=== PATIENT | female | born 1930 | race Caucasian/White ===

== ENCOUNTER 2016-05-20 12:57 | Inpatient (IN) | payer MEDICARE, OTHER ==
[~2016-05-20] VITALS: Ht 162.6 cm; Wt 68.0 kg
[~2016-05-20 12:57] MED LIST: CALC-671 PO; E400C; FEXO180T; HCT25T; HYDR-3583 PO; HYDR1TAB66 PO; HYOS0.1216; LEVO75TA57; LISI40TA; LUTE10TA; LVT.088T PO; MULT-608; NITR50CA; OCCUVITE; OMEP20CA6 PO; PROP1TAB77; SCR1T1
--- NOTE | 2016-05-20 13:28 | ED Cough/URI ---
General Chief Complaint: Cough/Cold/Flu Symptoms Stated Complaint: COUGH/R SIDE HEAD PAIN Source: patient, family (DAUGHTER) History of Present Illness Time seen by provider: 13:13 Initial Comments PT ARRIVES VIA POV FROM HOME C/O NON-PRODUCTIVE COUGH SINCE Saturday05/15/16--GETTING WORSE C/O FEVER UP TO 102 SINCE YESTERDAY C/O NASAL CONGESTION --CLEAR DRAINAGE C/O BODY ACHES C/O PAIN TO RIGHT POSTERIOR AND LINA-AURICULAR AREA--COMES AND GOES AND IS VERY SHARP AND SEVERE AT TIMES, AND RADIATES TO RIGHT CHEEK. NO PARESTHESIAS OR MOTOR DEFICITS. NO RINGING OF EARS. NO VISION PROBLEMS. NO RASH TO AREA. HAS HAD SHINGLES IN THE PAST TO THE FACE, BUT DOES NOT REMEMBER WHICH SIDE NO CHEST PAIN OR SHORTNESS OF BREATH DAUGHTER BEGAN HAVING THE SAME SYMPTOMS A DAY LATER PT DID RECEIVE THE FLU VACCINATION THIS YEAR PCP: DR. BEDOYA Allergies and Home Medications Allergies Coded Allergies: Penicillins (Verified Allergy, Severe, TACHYCARDIA, COULDN'T BREATHE, ) Sulfa (Sulfonamide Antibiotics) (Verified Allergy, Severe, TACHYCARDIA, COULDN'T BREATHE, 05/20/16) Uncoded Allergies: [id number] (SULFA (SULFONAMIDE ANTIBIOTICS)) (Allergy, Mild, RASH, 05/20/16) heart palpatations Home Medications (Reported) Amlodipine Besylate 5 Mg Tablet 30Days 5 MG PO DAILY Prescribed by: HINA HERNDON on 05/20/16 1748 Calcium Carbonate/Vitamin D3 1 Each Tablet (Reported) Cyclobenzaprine HCl 5 Mg Tablet 30Days 5 MG PO TID Prescribed by: HINA HERNDON on 05/20/16 1748 Hydrocodone Bit/Acetaminophen 1 Each Tablet 1 EACH PO (Reported) Levothyroxine Sodium 88 Mcg Tablet (Reported) Multivitamins 1 Tab Tablet (Reported) Omeprazole 20 Mg Capsule. #30 20 MG PO DAILY Prescribed by: CALIXTO ROCHA on 05/21/11 1623 Tramadol HCl 50 Mg Tablet 30Days 100 MG PO Q6H Prescribed by: HINA HERNDON on 05/20/16 1748 Constitutional: see HPI fever malaise EENTM: hoarseness nose congestion see HPI Respiratory: see HPI coughNo short of breath Cardiovascular: no symptoms reportedNo chest pain Gastrointestinal: no symptoms reported Genitourinary: no symptoms reported Musculoskeletal: see HPI (BODY ACHES) Skin: no symptoms reportedNo rash Psychiatric/Neurological: See HPI HeadacheDenies Numbness, Denies Paresthesia , Denies Seizure, Denies Tingling, Denies Tremors, Denies Weakness Hematologic/Lymphatic: No Symptoms Reported Immunological/Allergic: no symptoms reported Past Qurzsyu-Tntxfu-Pmfcko Hx Patient Social History Alcohol Use: Denies Use Recreational Drug Use: No Smoking Status: Never a Smoker Recent Foreign Travel: No Contact w/Someone Who Travel: No Recent Hopitalizations: No Immunizations Up To Date Date of Pneumonia Vaccine: Jan 13, 2014 Date of Influenza Vaccine: Feb 17, 2011 Surgeries HX Surgeries: Yes (TONSILLECTOMY,GASTRIC BYPASS,BILE DUCT BYPASS,BILAT KNEE REPLACEMENT) Surgeries: Abdominal, Joint Replacement, Orthopedic, Tonsillectomy Respiratory Hx Respiratory Disorders: No Cardiovascular Hx Cardiac Disorders: Yes Cardiac Disorders: Hypertension Neurological Hx Neurological Disorders: Yes Reproductive System Hx Reproductive Disorders: Yes Sexually Transmitted Disease: No Genitourinary Hx Genitourinary Disorders: Yes Genitourinary Disorders: Bladder Infection Gastrointestinal Hx Gastrointestinal Disorders: Yes (RECURRENT ABD PAINX20 YEARS) Musculoskeletal Hx Musculoskeletal Disorders: Yes Musculoskeletal Disorders: Arthritis Endocrine Hx Endocrine Disorders: Yes Endocrine Disorders: Hypothyroidsim HEENT HX ENT Disorders: No Cancer Hx Cancer: No Psychosocial Hx Psychiatric Problems: Yes Integumentary HX Skin/Integumentary Disorder: Yes (SHINGLES) Blood Transfusions Hx Blood Disorders: No Physical Exam Vital Signs Vital Sign - Last 12Hours 05/20/16 13:44 Temp 96.4 Pulse 70 Resp 16 Pulse Ox 97 O2 Delivery Room Air Capillary Refill : General Appearance: WD/WN no apparent distress other (CONSTANT, HARSH, DRY COUGH) HEENT: PERRL/EOMI other (NASAL MUCOSAL EDEMA WITH CLEAR RHINORRHEA AND POST NASAL DRAINAGE; VOICE HOARSE) Neck: non-tender full range of motion supple normal inspection Respiratory: no respiratory distress no accessory muscle use rales (FEW, SCATTERED RALES BILATERALLT) Cardiovascular: regular rate, rhythm no murmur Gastrointestinal: normal bowel sounds non tender soft Extremities: normal inspection no pedal edema no calf tenderness normal capillary refill 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 no motor/sensory deficits alert normal mood/affect oriented x 3 Skin: normal color warm/dry Progress/Results/Core Measures Results/Orders Lab Results Laboratory Tests Test 05/20/16 14:32 Range/Units Alanine Aminotransferase (ALT/SGPT) 15 0-55 U/L Albumin 3.4 3.2-4.5 G/DL Alkaline Phosphatase 79 40-136 U/L Anion Gap 14 5-14 MMOL/L Aspartate Amino Transf (AST/SGOT) 20 5-34 U/L BUN/Creatinine Ratio 16 Basophils # (Auto) 0.0 0.0-0.1 10^3/uL Basophils (%) (Auto) 0 0-10 % Blood Urea Nitrogen 14 7-18 MG/DL Calcium Level 8.4 L 8.5-10.1 MG/DL Carbon Dioxide Level 23 21-32 MMOL/L Chloride Level 102 98-107 MMOL/L Creatinine 0.86 0.60-1.30 MG/DL Eosinophils # (Auto) 0.1 0.0-0.3 10^3/uL Eosinophils (%) (Auto) 1 0-10 % Estimat Glomerular Filtration Rate > 60 Glucose Level 125 H 70-105 MG/DL Hematocrit 31 L 35-52 % Hemoglobin 10.1 L 11.5-16.0 G/DL Lactic Acid Level 1.1 0.5-2.0 MMOL/L Lymphocytes # (Auto) 1.2 1.0-4.0 X 10^3 Lymphocytes (%) (Auto) 15 12-44 % Mean Corpuscular Hemoglobin 28 25-34 PG Mean Corpuscular Hemoglobin Concent 33 32-36 G/DL Mean Corpuscular Volume 85 80-99 FL Mean Platelet Volume 10.7 H 7.4-10.4 FL Monocytes # (Auto) 0.7 0.0-1.0 X 10^3 Monocytes (%) (Auto) 8 0-12 % Neutrophils # (Auto) 6.2 1.8-7.8 X 10^3 Neutrophils (%) (Auto) 76 H 42-75 % Platelet Count 220 130-400 10^3/uL Potassium Level 3.3 L 3.6-5.0 MMOL/L Red Blood Count 3.63 L 4.35-5.85 10^6/uL Red Cell Distribution Width 14.1 10.0-14.5 % Sodium Level 139 135-145 MMOL/L Total Bilirubin 0.4 0.1-1.0 MG/DL Total Protein 6.7 6.4-8.2 G/DL White Blood Count 8.2 4.3-11.0 10^3/uL Micro Results Microbiology 05/20/16 Influenza Types A,B Antigen (DAVID) - Final, Complete My Orders Orders-DONNYCANDIDA Clark Influenza A And B Antigens (05/20/16 13:14) Chest Pa/Lat (2 View) (05/20/16 13:14) Saline Lock/Iv-Start (05/20/16 13:58) Cbc With Automated Diff (05/20/16 13:58) Comprehensive Metabolic Panel (05/20/16 13:58) Lactic Acid Analyzer (05/20/16 13:58) Blood Culture (05/20/16 13:58) Albuterol/Ipra Inhalation Soln (Duoneb I (05/20/16 14:00) Rt Request For Service (05/20/16 13:58) Svn Sm Volume Nebulizer Rt-Rfs (05/20/16 13:58) Ceftriaxone Injection (Rocephin Injectio (05/20/16 14:00) Benzonatate Capsule (Tessalon Perles) (05/20/16 14:00) Ceftriaxone Injection (Rocephin Injectio (05/20/16 14:42) Normal Saline (Lennon Mini) (Ns (Lennon (05/20/16 14:43) Fentanyl Injection (Sublimaze Injection (05/20/16 15:22) Medications Given in ED Current Medications Medications Dose Ordered Sig/[place] Route Start Time Stop Time Status Last Admin Dose Admin Albuterol/ Ipratropium 3 ml 3 ml ONCE ONCE INH 05/20/16 14:00 05/20/16 14:01 DC 05/20/16 15:02 3 ML Ceftriaxone Sodium/Sodium Chloride 50 ml @ 100 mls/hr ONCE ONCE IV 05/20/16 14:00 05/20/16 14:29 DC 05/20/16 14:52 100 MLS/HR Vital Signs/I&O Vital Sign - Last 12Hours 05/20/16 05/20/16 05/20/16 13:44 15:02 15:43 Temp 96.4 96.4 Pulse 70 Resp 16 B/P Pulse Ox 97 95 O2 Delivery Room Air Room Air Progress Note : Progress Note UNEVENTFUL ER STAY SLIGHT DECREASE IN COUGH AT TIME OF ADMIT, AFTER NEBULIZER TREATMENT Diagnostic Imaging Comments CXR--RLL INFILTRATE, PER RADIOLOGIST REPORT @ 1355 Reviewed: Reviewed by Me Departure Communication Progress Notes 1517--SPOKE WITH DR. STACK, ACCEPTS PT FOR ADMIT. Impression Impression: Primary Impression: RLL pneumonia Additional Impression: Right facial pain Disposition: ADMITTED INPATIENT Condition: Stable Decision to Admit Reason: Admit from ER (General) Decision to Admit/Date: May 20, 2016 Time/Decision to Admit Time: 15:20 Departure-Patient Inst. Referrals: YEHUDA BEDOYA DO (PCP) Primary Care Physician Scripts Tramadol HCl 50 Mg Byacco493 Mg PO Q6H 30 Days Prov:BASHIR STACK DO 05/20/16 Cyclobenzaprine HCl 5 Mg Tablet5 Mg PO TID 30 Days Prov:BASHIR STACK DO 05/20/16 Amlodipine Besylate 5 Mg Tablet5 Mg PO DAILY 30 Days Prov:BASHIR STACK DO 05/20/16 CANDIDA HINES DO May 20, 2016 13:28
--- NOTE | 2016-05-20 13:46 | Diagnostic Imaging Report ---
EXAMINATION: CHEST (PA AND LATERAL) CLINICAL INDICATION: 85-year-old female, cough and headache. COMPARISON: Acute abdominal series July 04, 2009. FINDINGS: Heart size and mediastinal contours are unremarkable. There is no identified pneumothorax. There is no pleural effusion. There are peripheral reticulonodular opacities in the right mid and lower lung zones. IMPRESSION: 1. New mild reticulonodular opacities in the mid and lower lung zones on the right. Findings may potentially relate to infectious or inflammatory etiology or potentially atelectasis. Clinical correlation and followup to resolution would be recommended. Dictated by: Dictated on workstation # [id number]
[2016-05-20] MEDS ORDERED: cefTRIAXone INJECTION 1,000 MG in NORMAL SALINE (BAXTER MINI) 50 ML IV ONE (14:00)
[2016-05-20] MEDS ORDERED: RT-ALBUTEROL/IPRATROPIUM 3 ML (DUONEB) VIAL INH ONE (14:00)
[2016-05-20] MEDS ORDERED: BENZONATATE 100 MG (TESSALON) CAPSULE PO SCH (14:00)
[2016-05-20] MEDS ORDERED: cefTRIAXone 1 GM (ROCEPHIN) VIAL ONE (14:42)
[2016-05-20] MEDS ORDERED: NORMAL SALINE (BAXTER MINI) 50 ML IV ONE (14:43)
[2016-05-20 14:46] LABS: BASOPHILS % (AUTO) 0 % (0-10); EOSINOPHILS # (AUTO) 0.1 10^3/uL (0.0-0.3); EOSINOPHILS % (AUTO) 1 % (0-10); LYMPHOCYTES # (AUTO) 1.2 X 10^3 (1.0-4.0); LYMPHOCYTES % (AUTO) 15 % (12-44); MEAN CORPUSCULAR HEMOGLOBIN 28 PG (25-34); MEAN CORPUSCULAR HGB CONC 33 G/DL (32-36); MEAN CORPUSCULAR VOLUME 85 FL (80-99); MEAN PLATELET VOLUME 10.7 FL (7.4-10.4); MONOCYTES # (AUTO) 0.7 X 10^3 (0.0-1.0); MONOCYTES % (AUTO) 8 % (0-12); NEUTROPHILS # (AUTO) 6.2 X 10^3 (1.8-7.8); NEUTROPHILS % (AUTO) 76 % (42-75); PLATELET COUNT 220 10^3/uL (130-400); RED BLOOD COUNT 3.63 10^6/uL (4.35-5.85); RED CELL DISTRIBUTION WIDTH 14.1 % (10.0-14.5); WHITE BLOOD COUNT 8.2 10^3/uL (4.3-11.0)
[2016-05-20 15:03] LABS: ALANINE AMINOTRANSFERASE 15 U/L (0-55); ALBUMIN 3.4 G/DL (3.2-4.5); ANION GAP 14 MMOL/L (5-14); ASPARTATE AMINO TRANSFERASE 20 U/L (5-34); BILIRUBIN,TOTAL 0.4 MG/DL (0.1-1.0); BLOOD UREA NITROGEN 14 MG/DL (7-18); BUN/CREATININE RATIO 16; CALCIUM 8.4 MG/DL (8.5-10.1); CARBON DIOXIDE 23 MMOL/L (21-32); CHLORIDE 102 MMOL/L (98-107); CREATININE SERUM 0.86 MG/DL (0.60-1.30); GFR ESTIMATED > 60; GLUCOSE 125 MG/DL (70-105); POTASSIUM 3.3 MMOL/L (3.6-5.0); SODIUM 139 MMOL/L (135-145); TOTAL PROTEIN 6.7 G/DL (6.4-8.2)
[2016-05-20] MEDS ORDERED: fentaNYL INJECTION 100 MCG/2 ML AMP IVP STA (15:22)
[2016-05-20 17:05] VITALS: BP 145/76
[2016-05-20] MEDS ORDERED: D5 1/2 NS 1000 ML IV SOLUTION 1,000 ML IV SCH (17:30)
[2016-05-20] MEDS ORDERED: IBUPROFEN 800 MG (MOTRIN) TAB PO PRN (17:30)
[2016-05-20] MEDS ORDERED: ACETAMINOPHEN 500 MG TAB (TYLENOL) PO PRN ×2 (17:30)
[2016-05-20] MEDS ORDERED: BENZONATATE 100 MG (TESSALON) CAPSULE PO PRN (17:30)
[2016-05-20] MEDS ORDERED: CATHETER FLUSH 10 ML SYR IV PRN (17:30)
[2016-05-20] MEDS ORDERED: AZITHROMYCIN IV ADD-VANTAGE 500 MG in SODIUM CHLORIDE (ADD-VANTAGE) 250 ML IV ONE (17:30)
[2016-05-20] MEDS ORDERED: fentaNYL INJECTION 100 MCG/2 ML AMP IVP PRN (17:30)
[2016-05-20] MEDS ORDERED: AZITHROMYCIN IV ADD-VANTAGE 500 MG IV ONE (17:37)
[2016-05-20] MEDS ORDERED: SODIUM CHLORIDE (ADD-VANTAGE) 250 ML ONE (17:39)
[2016-05-20] MEDS ORDERED: CYCL5TAB PO (17:48)
[2016-05-20] MEDS ORDERED: AMLO5TAB2 PO (17:48)
[2016-05-20] MEDS ORDERED: TRAM50TA2 PO (17:48)
[2016-05-20] MEDS: D5 1/2 NS 1000 ML IV SOLUTION 1,000 ML IV SCH (17:49)
[2016-05-20] MEDS: fentaNYL INJECTION 100 MCG/2 ML AMP IV PRN (18:30)
[2016-05-20] MEDS ORDERED: RT-ALBUTEROL/IPRATROPIUM 3 ML (DUONEB) VIAL INH PRN (20:30)
[2016-05-20] MEDS: BENZONATATE 100 MG (TESSALON) CAPSULE PO PRN (20:40)
[2016-05-20 20:51] VITALS: BP 124/56
[2016-05-20] MEDS ORDERED: THIAMINE INJECTION 100 MG, FOLIC ACID INJECTION 1 MG, VITAMIN MULTI INJECTION 10 ML, MA... IV ONE ×5 (22:00)
[2016-05-20 23:33] VITALS: BP 108/58
[2016-05-21] MEDS: D5 1/2 NS 1000 ML IV SOLUTION 1,000 ML IV SCH ×3 (03:30→15:28)
[2016-05-21 04:00] VITALS: BP 131/59
[2016-05-21] MEDS: fentaNYL INJECTION 100 MCG/2 ML AMP IV PRN ×2 (04:24→07:14)
[2016-05-21] MEDS: BENZONATATE 100 MG (TESSALON) CAPSULE PO PRN ×3 (04:25→17:21)
[2016-05-21] MEDS: LACTATED RINGERS 1,000 ML IV SCH (04:39)
[2016-05-21] MEDS: guaiFENesin/DM (ROBITUSSIN DM) 10 ML UDC PO PRN ×3 (07:11→20:57)
[2016-05-21 07:22] LABS: BASOPHILS % (AUTO) 0 % (0-10); EOSINOPHILS # (AUTO) 0.3 10^3/uL (0.0-0.3); EOSINOPHILS % (AUTO) 3 % (0-10); LYMPHOCYTES # (AUTO) 1.5 X 10^3 (1.0-4.0); LYMPHOCYTES % (AUTO) 15 % (12-44); MEAN CORPUSCULAR HEMOGLOBIN 27 PG (25-34); MEAN CORPUSCULAR HGB CONC 32 G/DL (32-36); MEAN CORPUSCULAR VOLUME 84 FL (80-99); MEAN PLATELET VOLUME 10.9 FL (7.4-10.4); MONOCYTES # (AUTO) 0.7 X 10^3 (0.0-1.0); MONOCYTES % (AUTO) 8 % (0-12); NEUTROPHILS # (AUTO) 7.3 X 10^3 (1.8-7.8); NEUTROPHILS % (AUTO) 74 % (42-75); PLATELET COUNT 230 10^3/uL (130-400); RED CELL DISTRIBUTION WIDTH 14.2 % (10.0-14.5); WHITE BLOOD COUNT 9.8 10^3/uL (4.3-11.0)
[2016-05-21 07:46] LABS: ALANINE AMINOTRANSFERASE 14 U/L (0-55); ANION GAP 9 MMOL/L (5-14); ASPARTATE AMINO TRANSFERASE 21 U/L (5-34); BILIRUBIN,TOTAL 0.3 MG/DL (0.1-1.0); BLOOD UREA NITROGEN 11 MG/DL (7-18); BUN/CREATININE RATIO 14; CALCIUM 8.1 MG/DL (8.5-10.1); CARBON DIOXIDE 25 MMOL/L (21-32); CHLORIDE 105 MMOL/L (98-107); CREATININE SERUM 0.79 MG/DL (0.60-1.30); GFR ESTIMATED > 60; GLUCOSE 117 MG/DL (70-105); POTASSIUM 3.3 MMOL/L (3.6-5.0); SODIUM 139 MMOL/L (135-145); TOTAL PROTEIN 6.3 G/DL (6.4-8.2)
[2016-05-21 08:00] VITALS: BP 116/59
[2016-05-21] MEDS: IBUPROFEN 800 MG (MOTRIN) TAB PO PRN ×2 (09:58→20:57)
[2016-05-21] MEDS: AZITHROMYCIN 250 MG TAB (ZITHROMAX) PO SCH (09:59)
[2016-05-21] MEDS: RT-ALBUTEROL/IPRATROPIUM 3 ML (DUONEB) VIAL INH SCH ×3 (11:14→19:12)
[2016-05-21 11:59] VITALS: BP 90/65
--- NOTE | 2016-05-21 12:22 | History & Physical-Hospitalist ---
HPI History of Present Illness: HPI/Chief Complaint The patient is a charming 85-year-old white female. She was admitted to the emergency room after she presented with complaints of cough and fever. She reported that she had been in [place] to spend [place] with her granddaughter and great grandchildren. She had returned on Monday 05/14. She stated that she had acquired a cough which was productive of some sputum from her great-grandchildren. This then cleared she was able to undergo colonoscopy on 05/17. She then began to cough again. She ran a fever as high as 102 reports had minimal sputum production. Her daughter who lives in [place] came over and they set out with the intent of going to a quick care provider. None were open so they came to the emergency room. Findings in the emergency room showed her initial temperature to be 101. Chest x-ray showed marginal findings suggestive of pneumonia. Her hemoglobin was 10.1, her white blood count was 8200, and her potassium was 3.3. She was admitted for IV antibiotics and pulmonary toilet. Source: patient Date Seen 05/21/16 Attending Physician Mary Ramirez William J DO Referring Physician Date of Admission May 20, 2016 at 16:26 Home Medications & Allergies Home Medications Reviewed patient Home Medication Reconciliation Form Allergies Coded Allergies: Penicillins (Verified Allergy, Severe, TACHYCARDIA, COULDN'T BREATHE, ) Sulfa (Sulfonamide Antibiotics) (Verified Allergy, Severe, TACHYCARDIA, COULDN'T BREATHE, 05/20/16) Uncoded Allergies: [id number] (SULFA (SULFONAMIDE ANTIBIOTICS)) (Allergy, Mild, RASH, 05/20/16) heart palpatations Past Vfghame-Nzpcyo-Waqxyg Hx Patient Social History Alcohol Use: Denies Use Recreational Drug Use: No Smoking Status: Never a Smoker Physical Abuse Screen: No Sexual Abuse: No Recent Foreign Travel: No Contact w/other who traveled: No Recent Hopitalizations: No Recent Infectious Disease Expo: No Immunizations Up To Date Tetanus Booster (TDap): Unknown Date of Pneumonia Vaccine: Jan 13, 2014 Date of Influenza Vaccine: Feb 18, 2016 Seasonal Allergies Seasonal Allergies: No Surgeries HX Surgeries: Yes (TONSILLECTOMY,GASTRIC BYPASS,BILE DUCT BYPASS,BILAT KNEE REPLACEMENT) Surgeries: Abdominal, Joint Replacement, Orthopedic, Tonsillectomy Respiratory Hx Respiratory Disorders: No Cardiovascular Hx Cardiovascular Disorders: Yes Cardiac Disorders: Hypertension Neurological Hx Neurological Disorders: Yes Reproductive System Hx Reproductive Disorders: Yes Sexually Transmitted Disease: No Genitourinary Hx Genitourinary Disorders: Yes Genitourinary Disorders: Bladder Infection Gastrointestinal Hx Gastrointestinal Disorders: Yes (RECURRENT ABD PAINX20 YEARS) Musculoskeletal Hx Musculoskeletal Disorders: Yes (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 Review of Systems Constitutional: see HPI chills fever EENTM: no symptoms reported Respiratory: see HPI cough phlegm Cardiovascular: no symptoms reported Gastrointestinal: no symptoms reported Musculoskeletal: no symptoms reported Skin: no symptoms reported Psychiatric/Neurological: No Symptoms Reported Physical Exam Physical Exam Vital Signs Capillary Refill : Less Than 3 SecondsLess Than 3 Seconds General Appearance: Mild Distress Other (harsh cough) Eyes: Bilateral Eye Normal Inspection HEENT: Normal ENT Inspection Cardiovascular: Regular Rate, Rhythm No Edema No Gallop No JVD No Murmur Normal Peripheral Pulses Gastrointestinal: Normal Bowel Sounds No Organomegaly Non Tender Soft Extremity: Normal Capillary Refill Normal Inspection Normal Range of Motion Non Tender No Calf Tenderness No Pedal Edema Neurologic/Psychiatric: Alert Oriented x3 No Motor/Sensory Deficits Normal Mood/Affect Skin: Normal Color Warm/Dry Lymphatic: No Adenopathy Results Results/Procedures Lab Assessment/Plan Admission Diagnosis 1.respiratory illness with fever. 2.minimal chest x-ray changes suggesting pneumonia or pneumonitis Clinical Quality Measures DVT/VTE Risk/Contraindication: Risk Factor Score Per Nursin RFS Level Per Nursing on Admit: 4+=Very High SANTO VALADEZ MD May 21, 2016 12:22 Neurologic/Psychiatric: Alert Oriented x3 No Motor/Sensory Deficits Normal Mood/Affect Skin: Normal Color Warm/Dry Lymphatic: No Adenopathy Results Results/Procedures Lab Laboratory Tests 05/20/16 14:32 05/21/16 06:45 Assessment/Plan Admission Diagnosis 1.respiratory illness with fever. 2.minimal chest x-ray changes suggesting pneumonia or pneumonitis Clinical Quality Measures DVT/VTE Risk/Contraindication: Risk Factor Score Per Nursin RFS Level Per Nursing on Admit: 4+=Very High SANTO VALADEZ MD May 21, 2016 12:22
[2016-05-21] MEDS: KCL 20 MEQ TAB (K-DUR) PO SCH ×2 (14:23→20:56)
[2016-05-21] MEDS ORDERED: cefTRIAXone 1 GM (ROCEPHIN) VIAL ONE (15:10)
[2016-05-21] MEDS ORDERED: NORMAL SALINE (BAXTER MINI) 50 ML IV ONE (15:11)
[2016-05-21] MEDS: cefTRIAXone INJECTION 1,000 MG in NORMAL SALINE (BAXTER MINI) 50 ML IV SCH ×2 (15:14→15:19)
[2016-05-21 16:00] VITALS: BP 116/63
[2016-05-21 20:00] VITALS: BP 130/69
[2016-05-22] VITALS: BP 112/56
[2016-05-22] MEDS: BENZONATATE 100 MG (TESSALON) CAPSULE PO PRN ×2 (00:23→22:34)
[2016-05-22] MEDS: fentaNYL INJECTION 100 MCG/2 ML AMP IV PRN (00:23)
[2016-05-22 04:00] VITALS: BP 117/59
[2016-05-22] MEDS: D5 1/2 NS 1000 ML IV SOLUTION 1,000 ML IV SCH ×2 (04:25→15:14)
[2016-05-22 05:50] LABS: ANION GAP 9 MMOL/L (5-14); BLOOD UREA NITROGEN 10 MG/DL (7-18); BUN/CREATININE RATIO 14; CALCIUM 7.7 MG/DL (8.5-10.1); CARBON DIOXIDE 21 MMOL/L (21-32); CHLORIDE 108 MMOL/L (98-107); CREATININE SERUM 0.73 MG/DL (0.60-1.30); GFR ESTIMATED > 60; GLUCOSE 99 MG/DL (70-105); POTASSIUM 3.8 MMOL/L (3.6-5.0); SODIUM 138 MMOL/L (135-145)
[2016-05-22] MEDS: guaiFENesin/DM (ROBITUSSIN DM) 10 ML UDC PO PRN ×3 (06:06→20:03)
[2016-05-22 08:00] VITALS: BP 148/70
[2016-05-22] MEDS: KCL 20 MEQ TAB (K-DUR) PO SCH ×2 (08:13→20:03)
[2016-05-22] MEDS: AZITHROMYCIN 250 MG TAB (ZITHROMAX) PO SCH (08:13)
[2016-05-22] MEDS: RT-ALBUTEROL/IPRATROPIUM 3 ML (DUONEB) VIAL INH SCH ×4 (08:13→19:45)
[2016-05-22] MEDS: IBUPROFEN 800 MG (MOTRIN) TAB PO PRN ×2 (11:54→22:34)
[2016-05-22 12:00] VITALS: BP 129/59
--- NOTE | 2016-05-22 13:28 | Progress Note-Hospitalist ---
Standard Progress Note Progress Notes/Assess & Plan Date Seen 05/22/16 Diagnosis 1.respiratory illness with fever. 2.minimal chest x-ray changes suggesting pneumonia or pneumonitis Assess & Plan/Chief Complaint The patient reports that she is feeling considerably better today. She looks visibly better as well. She continues to cough although not as violently. Her voice is improved although still somewhat hoarse. Physical exam: Lungs are clear to auscultation. CV is regular. Extremities show no pedal edema. She reports a continued pain in the right temporal area. The temporal artery does not seem ropey or tender. Impression: Febrile upper respiratory illness. 2.right temporal pain consider temporal arteritis Plan: Obtain ESR and we will consider discharge tomorrow if condition continued improvement. Labs Laboratory Tests 05/20/16 14:32 05/21/16 06:45 05/22/16 04:55 SANTO VALADEZ MD May 22, 2016 13:28
[2016-05-22] MEDS ORDERED: AMLO5TAB4 PO (15:13)
[2016-05-22] MEDS ORDERED: MULT-985 PO (15:13)
[2016-05-22] MEDS ORDERED: TRAM50TA2 PO (15:13)
[2016-05-22] MEDS ORDERED: CYCL10TA9 PO (15:13)
[2016-05-22] MEDS ORDERED: LUTE20TA PO (15:13)
[2016-05-22] MEDS ORDERED: OMEP20CA12 PO (15:13)
[2016-05-22] MEDS ORDERED: BETA1TAB12 PO (15:13)
[2016-05-22] MEDS ORDERED: CHOL400C9 PO (15:13)
[2016-05-22] MEDS ORDERED: CYAN500T2 PO (15:13)
[2016-05-22] MEDS ORDERED: HYDR-3812 PO (15:15)
[2016-05-22] MEDS ORDERED: CYCL5TAB PO (15:15)
[2016-05-22] MEDS: cefTRIAXone INJECTION 1,000 MG in NORMAL SALINE (BAXTER MINI) 50 ML IV SCH (15:16)
[2016-05-22 15:56] VITALS: BP 133/74
[2016-05-22 20:00] VITALS: BP 126/70
[2016-05-23] VITALS: BP 127/71
[2016-05-23] MEDS: D5 1/2 NS 1000 ML IV SOLUTION 1,000 ML IV SCH ×2 (05:30→15:30)
[2016-05-23] MEDS: RT-ALBUTEROL/IPRATROPIUM 3 ML (DUONEB) VIAL INH SCH ×4 (07:32→19:57)
[2016-05-23 07:45] VITALS: BP 138/86
[2016-05-23] MEDS: AZITHROMYCIN 250 MG TAB (ZITHROMAX) PO SCH (08:47)
[2016-05-23] MEDS: KCL 20 MEQ TAB (K-DUR) PO SCH ×2 (08:48→20:00)
--- NOTE | 2016-05-23 11:12 | Progress Note-Hospitalist ---
Standard Progress Note Progress Notes/Assess & Plan Date Seen 05/23/16 Diagnosis 1.respiratory illness with fever. 2.minimal chest x-ray changes suggesting pneumonia or pneumonitis Assess & Plan/Chief Complaint The patient reports that she is less breathless than previously. She continues to cough and is producing thick sticky sputum. The effort of coughing and sometimes exhausts her. She is afebrile. Physical exam: She is alert and oriented. Her voice is less hoarse today. Lungs are clear to auscultation. CV is regular. Impression: Bronchitis/pneumonitis, improving Plan: Continue fluids and antibiotics. Add Mucinex. Labs Laboratory Tests 05/22/16 04:55 SANTO VALADEZ MD May 23, 2016 11:12
[2016-05-23] MEDS: BENZONATATE 100 MG (TESSALON) CAPSULE PO PRN (14:48)
[2016-05-23] MEDS: cefTRIAXone INJECTION 1,000 MG in NORMAL SALINE (BAXTER MINI) 50 ML IV SCH (15:58)
[2016-05-23 16:00] VITALS: BP 148/77
[2016-05-23] MEDS: guaiFENesin (MUCINEX) 600 MG TAB PO SCH (20:00)
[2016-05-23] MEDS: IBUPROFEN 800 MG (MOTRIN) TAB PO PRN (22:25)
[2016-05-23] MEDS: guaiFENesin/DM (ROBITUSSIN DM) 10 ML UDC PO PRN (22:25)
[2016-05-24] VITALS: BP 115/66
[2016-05-24] MEDS: D5 1/2 NS 1000 ML IV SOLUTION 1,000 ML IV SCH (01:51)
[2016-05-24] MEDS: guaiFENesin/DM (ROBITUSSIN DM) 10 ML UDC PO PRN (04:58)
[2016-05-24] MEDS ORDERED: CEFD300C3 PO (06:51)
[2016-05-24] MEDS ORDERED: GUAI5SYR PO (06:51)
--- NOTE | 2016-05-24 06:52 | Discharge Instructions ---
Discharge Instructions Discharge Medications New, Converted or Re-Newed RX: Transmitted to Pharmacy New Medications: Cefdinir (Cefdinir) 300 Mg Capsule 300 MG PO BID #8 CAP Guaifenesin/Dextromethorphan (Guaifenesin Dm Syrup) 5 Ml Syrup 5 ML PO Q4H PRN COUGH #8 OZ Continued Medications: Amlodipine Besylate (Norvasc) 5 Mg Tablet 5 MG PO DAILY TAB Beta-Carotene(A) W-C & E/Min (Vision Vitamins) 1 Each Tablet 1 TAB PO DAILY TAB Calcium Carbonate/Vitamin D3 (Calcium 600 + D Caplet) 1 Each Tablet 1 TAB PO DAILY TAB Cholecalciferol (Vitamin D3) (Vitamin D3) 400 Unit Capsule 400 UNIT PO DAILY CAP Cyanocobalamin (Vitamin B-12) (Vitamin B-12) 500 Mcg Tablet 500 MCG PO DAILY TAB Cyclobenzaprine HCl (Cyclobenzaprine HCl) 5 Mg Tablet 5 MG PO TID TAB Hydrocodone/Acetaminophen (Hydrocodon -Acetaminophen 5-325) 1 Each Tablet 1 TAB PO DAILY PRN PAIN TAB Levothyroxine Sodium (Levothyroxine 88 Mcg Tab) 88 Mcg Tablet 88 MCG PO DAILY TAB Lutein (Lutein) 20 Mg Tablet 20 MG PO DAILY TAB Multivitamin with Minerals (Hair, Skin & Nails) 1 Each Tablet 1 TAB PO DAILY TAB Omeprazole (Omeprazole) 20 Mg Capsule.dr 20 MG PO DAILY CAP Tramadol HCl (Tramadol HCl) 50 Mg Tablet 50-100 MG PO Q6H PRN PAIN TAB Patient Instructions Goal/Follow Up Appt: Dr Poon in 1 week Activity & Diet Discharge Diet: No Restrictions Activity as Tolerated: Yes Copy Copies To 1: YEHUDA POON MINDI DO May 24, 2016 06:52
[2016-05-24] MEDS: RT-ALBUTEROL/IPRATROPIUM 3 ML (DUONEB) VIAL INH SCH ×2 (07:23→11:00)
--- NOTE | 2016-05-24 07:40 | Discharge Summary-Hospitalist ---
Diagnosis/Chief Complaint Date of Admission May 20, 2016 at 16:26 Date of Discharge Discharge Date: May 24, 2016 Admission Diagnosis 1.respiratory illness with fever. 2.minimal chest x-ray changes suggesting pneumonia or pneumonitis Discharge Diagnosis Pneumonia Hypothyroidism Leukocytosis Anemia of chronic disease Hypokalemia status post supplement Reason Hospital Visit/Course The patient is a charming 85-year-old white female. She was admitted to the emergency room after she presented with complaints of cough and fever. She reported that she had been in [place] to spend [place] with her granddaughter and great grandchildren. She had returned on Monday 05/14. She stated that she had acquired a cough which was productive of some sputum from her great-grandchildren. This then cleared she was able to undergo colonoscopy on 05/17. She then began to cough again. She ran a fever as high as 102 reports had minimal sputum production. Her daughter who lives in [place] came over and they set out with the intent of going to a quick care provider. None were open so they came to the emergency room. Findings in the emergency room showed her initial temperature to be 101. Chest x-ray showed marginal findings suggestive of pneumonia. Her hemoglobin was 10.1, her white blood count was 8200, and her potassium was 3.3. She was admitted for IV antibiotics and pulmonary toilet. Chart Review: No fever, Vitals stable last chalker: Pt wanted to go home yesterday. Dr. Haynes told pt to stay another night. Hep lock IVF. Pt is eating and drinking fine. Pt had a cough last night and Robitussin alleviated her cough. Patient Interview: Pt states she uses [facility]. Pt was told she needs to be on ABX for a few more days. Pt states she uses care calls from [facility] and her daughter lives in [place], [place]. Physical exam was stable. Pt states she has not ambulated much. Pt was encouraged to eat and ambulate this morning. Pt was told IV will be shut off. Pt states her daughter will pick her up once she is off work. Pt was told about [facility] care van and she likes this option. no fever vital signs stable, pleasant, oriented 3 Regular rate and rhythm, clear to auscultation bilaterally no rales or noted or wheezing Normal range of motion no edema Plan: Help-lock IVF Care Van Scribed by Vladislav Lance under the direct supervision of Dr. Ramirez. Hospital course: Patient had an uneventful hospital course she required IV fluids and IV antibiotics due to severe fever and pneumonia on chest x-ray. Leukocytosis and hypokalemia resolved after antibiotics and potassium supplement respectively and overall patient felt well enough and was stable enough to go home and declined home health and has her daughter watching over her periodically during the week. Discharge Summary Discharge Physical Examination Allergies: Coded Allergies: Penicillins (Verified Allergy, Severe, TACHYCARDIA, COULDN'T BREATHE, ) Sulfa (Sulfonamide Antibiotics) (Verified Allergy, Severe, TACHYCARDIA, COULDN'T BREATHE, 05/20/16) Uncoded Allergies: [id number] (SULFA (SULFONAMIDE ANTIBIOTICS)) (Allergy, Mild, RASH, 05/20/16) heart palpatations Vitals & I&Os Vital Signs Date Time Temp Pulse Resp B/P Pulse Ox O2 Delivery O2 Flow Rate FiO2 05/24/16 07:27 96 05/24/16 07:23 Room Air 05/24/16 00:00 97.4 77 18 115/66 05/23/16 08:00 2.00 Hospital Course Labs (last 24 hrs) Microbiology 05/20/16 Blood Culture - Preliminary, Resulted No growth 05/21/16 Gram Stain - Final, Complete 05/21/16 Sputum Culture - Final, Complete Usual/normal kevin isolated. Discharge Home Medications: Active Scripts Active Cefdinir 300 Mg Capsule 300 Mg PO BID Guaifenesin Dm Syrup (Guaifenesin/Dextromethorphan) 5 Ml Syrup 5 Ml PO Q4H PRN Reported Cyclobenzaprine HCl 5 Mg Tablet 5 Mg PO TID Hydrocodon -Acetaminophen 5-325 (Hydrocodone/Acetaminophen) 1 Each Tablet 1 Tab PO DAILY PRN Vitamin B-12 (Cyanocobalamin (Vitamin B-12)) 500 Mcg Tablet 500 Mcg PO DAILY Hair, Skin & Nails (Multivitamin with Minerals) 1 Each Tablet 1 Tab PO DAILY Lutein 20 Mg Tablet 20 Mg PO DAILY Vitamin D3 (Cholecalciferol (Vitamin D3)) 400 Unit Capsule 400 Unit PO DAILY Norvasc (Amlodipine Besylate) 5 Mg Tablet 5 Mg PO DAILY Omeprazole 20 Mg Capsule.dr 20 Mg PO DAILY Tramadol HCl 50 Mg Tablet 50-100 Mg PO Q6H PRN Vision Vitamins (Beta-Carotene(A) W-C & E/Min) 1 Each Tablet 1 Tab PO DAILY Calcium 600 + D Caplet (Calcium Carbonate/Vitamin D3) 1 Each Tablet 1 Tab PO DAILY Levothyroxine 88 Mcg Tab (Levothyroxine Sodium) 88 Mcg Tablet 88 Mcg PO DAILY Instructions to patient/family Please see electonic discharge instructions given to patient. Clinical Quality Measures DVT/VTE Risk/Contraindication: Risk Factor Score Per Nursin RFS Level Per Nursing on Admit: 4+=Very High BASHIR RAMIREZ DO May 24, 2016 07:40
[2016-05-24 08:00] VITALS: BP 118/68
[2016-05-24] MEDS: BENZONATATE 100 MG (TESSALON) CAPSULE PO PRN (09:53)
[2016-05-24] MEDS: guaiFENesin (MUCINEX) 600 MG TAB PO SCH (09:53)
[2016-05-24] MEDS: KCL 20 MEQ TAB (K-DUR) PO SCH (09:53)
[2016-05-24] MEDS: AZITHROMYCIN 250 MG TAB (ZITHROMAX) PO SCH (09:53)
[2016-05-24 11:30] VITALS: BP 118/68
== END 2016-05-24 11:45 | disposition home or self-care (01) | DRG 195 ==
LOC: EDUNIT# 12:57 → ER 12:59 → 4TH 16:26
PROVIDERS: ADMIT Internal Medicine; ATTEND Internal Medicine
DX: J18.9 Pneumonia, unspecified organism (principal); I10 Essential (primary) hypertension; E03.9 Hypothyroidism, unspecified; D63.8 Anemia in other chronic diseases classified elsewhere; E87.6 Hypokalemia; R51 Headache; M19.90 Unspecified osteoarthritis, unspecified site; Z98.84 Bariatric surgery status; Z96.651 Presence of right artificial knee joint; Z96.652 Presence of left artificial knee joint
CPT/HCPCS: 36415; 71020; 80048; 80053; 83605; 85025; 85652; 87040; 87070; 87205; 87804; 94640; 94664; 94760; 96365; 96374; 96375

== ENCOUNTER → 2016-07-02 | Outpatient (CLI) | payer MEDICARE, OTHER ==
[~2016-07-02] MED LIST changes: +AMLO5TAB2 PO; +AMLO5TAB4 PO; +BETA1TAB12 PO; +CEFD300C3 PO; +CHOL400C9 PO; +CYAN500T2 PO; +CYCL10TA9 PO; +CYCL5TAB PO; +GUAI5SYR PO; +HYDR-3812 PO; +LUTE20TA PO; +MULT-985 PO; +OMEP20CA12 PO; +TRAM50TA2 PO
--- OUTSIDE RECORDS SUMMARY | 2016-07-02 09:34 | XMS REPORT | Continuity of Care Document ---
Author Author [facility] Organization [facility] Address Unknown Phone Unavailable Care Team Providers Care Global Logistics Manager Name Role Phone YEHUDA BEDOYA DO PCP Insurance Providers Payer Name Policy Number Subscriber Name Relationship [employer] [id number] Cheri Antony 18 Self / Same As Patient Comm Crossover Enter Ins Name [id number] Cheri Antony 18 Self / Same As Patient Advance Directives Directive Response Recorded Date/Time Advance Directives Yes 05/20/16 5:55pm Health Care Power of Thermostatic Controls Supervisor Yes 05/20/16 5:55pm Organ Donor Yes 05/20/16 5:55pm Resuscitation Status Full Code 05/20/16 5:55pm Chief Complaint and Reason for Visit Chief Complaint PNEUMONIA RRL, RT FACIAL PAIN Reason for Visit RLL pneumonia Right facial pain Problems Active Problems Medical Problem Onset Date Status RLL pneumonia Unknown Acute Right facial pain Unknown Acute Medications Current Home Medications Medication Dose Units Route Directions Days/Qty Instructions Start Date Levothyroxine Sodium (Levothroid) 88 Mcg 88 Mcg Oral Daily 08/15/09 Calcium Carbonate/Vitamin D3 1 Each 1 Tab Oral Daily 08/15/09 Beta-Carotene(A) W-C & E/Min 1 Each 1 Tab Oral Daily 05/22/16 Tramadol Hcl 50 Mg 50-100 Mg Oral Every 6 Hours as needed for Pain 05/22/16 Omeprazole 20 Mg 20 Mg Oral Daily 05/22/16 Amlodipine Besylate 5 Mg 5 Mg Oral Daily 05/22/16 Cholecalciferol (Vitamin D3) 400 Unit 400 Unit Oral Daily 05/22/16 Lutein 20 Mg 20 Mg Oral Daily 05/22/16 Multivitamin With Minerals 1 Each 1 Tab Oral Daily 05/22/16 Cyanocobalamin (Vitamin B-12) 500 Mcg 500 Mcg Oral Daily 05/22/16 Hydrocodone/Acetaminophen 1 Each 1 Tab Oral Daily as needed for Pain 05/22/16 Cyclobenzaprine Hcl 5 Mg 5 Mg Oral Three Times A Day 05/22/16 Guaifenesin/Dextromethorphan 5 Ml 5 Ml Oral Every 4HRS as needed for Cough 8 05/24/16 Cefdinir (Omnicef) 300 Mg 300 Mg Oral Twice A Day 8 05/24/16 Past Home Medications Medication Directions Ordered Status Levothyroxine Sodium 75 Mcg Tablet, 07/04/09 Discontinued Hydrochlorothiazide 25 Mg Tab, 07/04/09 Discontinued Lisinopril 40 Mg Tablet, 07/04/09 Discontinued Nitrofurantoin Macrocrystal 50 Mg Capsule, 07/04/09 Discontinued Hydrochlorothiazide 25 Mg Tab, 07/04/09 Discontinued Fexofenadine Hcl 180 Mg Tablet, 08/15/09 Discontinued Hyoscyamine Sulfate 0.125 Mg Tab, 08/15/09 Discontinued Sucralfate 1 Gm Tab, 08/15/09 Discontinued Propoxyphene Hcl/Acetaminophen 1 Tab Tablet, 08/15/09 Discontinued Multivitamins 1 Tab Tablet, 08/15/09 Discontinued Lutein 10 Mg Tablet, 08/15/09 Discontinued [Occuvite] , 08/15/09 Discontinued Vitamin E 400 Unit Capsule, 08/15/09 Discontinued Hydrocodone Bit/Acetaminophen 1 Each Tablet, 1 Each Oral 05/21/11 Discontinued Omeprazole 20 Mg Capsule.dr, 20 Mg Oral Daily 05/21/11 Discontinued Amlodipine Besylate 5 Mg Tablet, 5 Mg Oral Daily 05/20/16 Discontinued Cyclobenzaprine Hcl 5 Mg Tablet, 5 Mg Oral Three Times A Day 05/20/16 Discontinued Tramadol Hcl 50 Mg Tablet, 100 Mg Oral Every 6 Hours 05/20/16 Discontinued Cyclobenzaprine Hcl 10 Mg Tablet, 10 Mg Oral Three Times A Day 05/22/16 Discontinued Social History Social History Problem Response Recorded Date/Time Alcohol Use Denies Use 05/20/2016 5:56pm Recreational Drug Use No 05/20/2016 5:56pm Recent Foreign Travel No 05/20/2016 6:03pm Recent Infectious Disease Exposure No 05/20/2016 6:03pm Hospitalization with Isolation Denies 05/24/2016 11:49am Sexually Transmitted Disease No 05/20/2016 5:56pm Smoking Status Never a Smoker 05/20/2016 5:59pm Recent Hopitalizations No 05/20/2016 5:56pm Sexually Transmitted Disease No 05/20/2016 5:56pm Hospitalization with Isolation Denies 05/24/2016 11:49am Hx Sexually Transmitted Disorders No 08/15/2009 11:46am Query Response Start Date Stop Date Smoking Status Never a Smoker Hospital Discharge Instructions Patient Instructions Physician Instructions New, Converted or Re-Newed RX: Transmitted to Pharmacy Goal/Follow Up Appt: Dr Bedoya in 1 week Discharge Diet: No Restrictions Activity as Tolerated: Yes Care Plan Goal:: Dr Bedoya in 1 week Plan of Care Discharge Date 05/24/16 11:45am Disposition 01 HOME, SELF-CARE Instructions/Education Provided Community-Acquired Pneumonia, Adult (DC) Forms Provided PDI Medical Prescriptions See Medication Section Referrals YEHUDA BEDOYA DO (Unspecified) - 05/31/16 Address: [address] [place] [address] Reason(s) for Referral: 2:30PM Care Plan and Goals See Discharge Instructions Section Functional Status Query Response Date Recorded Patient Orientation Person Place Time Situation May 24, 2016 11:49am Comprehension Ability Understands Concepts May 20, 2016 6:34pm Allergies, Adverse Reactions, Alerts Allergen Type Severity Reaction Status Last Updated Penicillins ([id number]) Allergy Severe TACHYCARDIA, COULDN'T BREATHE Active 05/20/16 Sulfa (Sulfonamide Antibiotics) ([id number]) Allergy Severe TACHYCARDIA, COULDN'T BREATHE Active 05/20/16 [id number] (SULFA (SULFONAMIDE ANTIBIOTICS)) Allergy Mild RASH Active 06/05 Immunizations No immunization records. Vital Signs Acute Vital Signs Vital Response Date/Time Temperature (Fahrenheit) 97.2 degrees F (97.6 - 99.5) 05/24/2016 11:30am Temperature (Calculated Celsius) 36.59417 degrees C (36.4 - 37.5) 05/24/2016 8:00am Temperature Source Tympanic 05/24/2016 11:30am Pulse Rate (adult) 72 bpm (60 - 90) 05/24/2016 11:30am Respiratory Rate 18 bpm (12 - 24) 05/24/2016 11:30am O2 Sat by Pulse Oximetry 95 % (88 - 100) 05/24/2016 11:30am Blood Pressure 118/68 mm Hg 05/24/2016 11:30am Blood Pressure Mean 85 mm Hg 05/24/2016 8:00am Pain Numeric Pain Scale 0-No Pain 05/24/2016 11:30am Height (Feet) 5 feet 05/20/2016 5:50pm Height (Inches) 4.00 inches 05/20/2016 5:50pm Height (Calculated Centimeters) 162.312777 cm 05/20/2016 5:50pm Weight (Pounds) 150 pounds 05/20/2016 5:50pm Weight (Ounces) 0.0 oz 05/20/2016 5:50pm Weight (Calculated Grams) 08976.86 gm 05/20/2016 5:50pm Weight (Calculated Kilograms) 68.231600 kilograms 05/20/2016 5:50pm Calculated BMI 25.8 05/20/2016 5:50pm Capillary Refill Capillary Refill Less Than 3 Seconds 05/20/2016 6:34pm Results Laboratory Results Test Name Result Units Flags Reference Collection Date/Time Result Date/ Time Comments White Blood Count 9.8 10^3/uL 4.3-11.0 05/21/2016 6:45am 05/21/2016 7: 24am Red Blood Count 3.70 10^6/uL L 4.35-5.85 05/21/2016 6:45am 05/21/2016 7: 24am Hemoglobin 10.1 G/DL L 11.5-16.0 05/21/2016 6:45am 05/21/2016 7:24am Hematocrit 31 % L 35-52 05/21/2016 6:45am 05/21/2016 7:24am Mean Corpuscular Volume 84 FL 80-99 05/21/2016 6:45am 05/21/2016 7: 24am Mean Corpuscular Hemoglobin 27 PG 25-34 05/21/2016 6:45am 05/21/2016 7: 24am Mean Corpuscular Hemoglobin Concent 32 G/DL 32-36 05/21/2016 6:45am 06/2016 7:24am Red Cell Distribution Width 14.2 % 10.0-14.5 05/21/2016 6:45am 2016 7:24am Platelet Count 230 10^3/uL 130-400 05/21/2016 6:45am 05/21/2016 7:24am Mean Platelet Volume 10.9 FL H 7.4-10.4 05/21/2016 6:45am 05/21/2016 7: 24am Neutrophils (%) (Auto) 74 % 42-75 05/21/2016 6:45am 05/21/2016 7:24am Lymphocytes (%) (Auto) 15 % 12-44 05/21/2016 6:45am 05/21/2016 7:24am Monocytes (%) (Auto) 8 % 0-12 05/21/2016 6:45am 05/21/2016 7:24am Eosinophils (%) (Auto) 3 % 0-10 05/21/2016 6:45am 05/21/2016 7:24am Basophils (%) (Auto) 0 % 0-10 05/21/2016 6:45am 05/21/2016 7:24am Neutrophils # (Auto) 7.3 X 10^3 1.8-7.8 05/21/2016 6:45am 05/21/2016 7: 24am Lymphocytes # (Auto) 1.5 X 10^3 1.0-4.0 05/21/2016 6:45am 05/21/2016 7: 24am Monocytes # (Auto) 0.7 X 10^3 0.0-1.0 05/21/2016 6:45am 05/21/2016 7: 24am Eosinophils # (Auto) 0.3 10^3/uL 0.0-0.3 05/21/2016 6:45am 05/21/2016 7 :24am Basophils # (Auto) 0.0 10^3/uL 0.0-0.1 05/21/2016 6:45am 05/21/2016 7: 24am Erythrocyte Sedimentation Rate 81 MM/HR H 0-30 05/22/2016 4:55am 2016 2:02pm Sodium Level 138 MMOL/L 135-145 05/22/2016 4:55am 05/22/2016 5:57am Potassium Level 3.8 MMOL/L 3.6-5.0 05/22/2016 4:55am 05/22/2016 5:57am Chloride Level 108 MMOL/L H 98-107 05/22/2016 4:55am 05/22/2016 5:57am Carbon Dioxide Level 21 MMOL/L 21-32 05/22/2016 4:55am 05/22/2016 5: 57am Anion Gap 9 MMOL/L 5-14 05/22/2016 4:55am 05/22/2016 5:57am Blood Urea Nitrogen 10 MG/DL 7-18 05/22/2016 4:55am 05/22/2016 5:57am Creatinine 0.73 MG/DL 0.60-1.30 05/22/2016 4:55am 05/22/2016 5:57am BUN/Creatinine Ratio 14 05/22/2016 4:55am 05/22/2016 5:57am Estimat Glomerular Filtration Rate > 60 05/22/2016 4:55am 2016 5:57am GFR INTERPRETIVE DATA UNITS FOR ESTIMATED GFR (eGFR): mL/min/1.73 M2 REFERENCE RANGE FOR ESTIMATED GFR (eGFR) eGFR NORMAL eGFR >60 MODERATELY DECREASED eGFR 30-59 SEVERLY DECREASED eGFR 15-29 KIDNEY FAILURE <15 (OR DIALYSIS) Glucose Level 99 MG/DL 70-105 05/22/2016 4:55am 05/22/2016 5:57am Calcium Level 7.7 MG/DL L 8.5-10.1 05/22/2016 4:55am 05/22/2016 5:57am Total Bilirubin 0.3 MG/DL 0.1-1.0 05/21/2016 6:45am 05/21/2016 7:53am Alkaline Phosphatase 79 U/L 40-136 05/21/2016 6:45am 05/21/2016 7:53am Aspartate Amino Transf (AST/SGOT) 21 U/L 5-34 05/21/2016 6:45am 2016 7:53am Alanine Aminotransferase (ALT/SGPT) 14 U/L 0-55 05/21/2016 6:45am 05/21 7:53am Total Protein 6.3 G/DL L 6.4-8.2 05/21/2016 6:45am 05/21/2016 7:53am Albumin 3.0 G/DL L 3.2-4.5 05/21/2016 6:45am 05/21/2016 7:53am Lactic Acid Level 1.1 MMOL/L 0.5-2.0 05/20/2016 2:32pm 05/20/2016 2: 59pm Microbiology Results Procedure Source Result Collection Date/Time Result Date/Time Blood Culture Peripheral, Iv/Heplock No growth 05/20/2016 2:39pm 2016 2:38pm Blood Culture Peripheral, Lt Ac GRAM POSITIVE MARGARITA 05/20/2016 2:32pm 2016 3:30pm Sputum Culture Sputum, Expectorated Usual/normal kevin isolated. 05/21/2016 1:07am 05/22/2016 8:29am Procedures No known history of procedures. Encounters Encounter Location Arrival/Admit Date Discharge/Depart Date Attending Provider Discharged Inpatient [facility] 05/20/16 4:26pm 11:45am BASHIR STACK DO Recent Diagnosis RLL pneumonia Right facial pain
--- NOTE | 2016-07-03 18:24 | Diagnostic Imaging Report ---
Bilateral screening mammogram. The current study was also evaluated with a Computer Aided Detection (CAD) system. INDICATION: Screening. No current complaints stated on the questionnaire. COMPARISON: 07/06/15. FINDINGS: There are scattered fibroglandular densities seen bilaterally. Benign-appearing calcifications mostly vascular are noted. Allowing for technique and positional differences, no suspicious change is seen. IMPRESSION: No significant change. ACR BI-RADS Category 2: Benign findings. Result letter will be mailed to the patient. Note: At least 10% of breast cancer is not imaged by mammography. Dictated by: Dictated on workstation # [id number]
== END ==
LOC: RAD 09:31
PROVIDERS: ATTEND Internal Medicine
DX: Z12.31 Encounter for screening mammogram for malignant neoplasm of breast (principal)
CPT/HCPCS: 77067

== ENCOUNTER → 2017-05-23 | Outpatient (CLI) | payer MEDICARE, OTHER ==
[~2017-05-23] MED LIST changes: +ACHD5005 PO; -HYDR-3812 PO
--- NOTE | 2017-05-23 12:11 | Diagnostic Imaging Report ---
EXAM: DEXA scan. INDICATION: Screening for osteoporosis COMPARISON: This study was compared to the prior exam of 02/08/2012. The bone mineral density of the hips was measured. FINDINGS: The T score for each hip is -1.3. On the prior exam, the T score for the right hip was also -1.3 but the T score for the left hip was -1.0. IMPRESSION: There has been a slight decrease in the bone mineral density of the left hip since the prior exam. The T score for both hips now indicates osteopenia. Dictated by: Dictated on workstation # [id number]
== END ==
LOC: RAD 09:37
PROVIDERS: ATTEND Internal Medicine
DX: M85.88 Other specified disorders of bone density and structure, other site (principal)
CPT/HCPCS: 77080

== ENCOUNTER → 2017-07-08 | Outpatient (CLI) | payer MEDICARE, OTHER ==
--- NOTE | 2017-07-08 14:27 | Diagnostic Imaging Report ---
INDICATION: Routine screening. COMPARISON: Comparison is made with prior exams from 07/02/2016 and 06/24/2015. The current study was also evaluated with a Computer Aided Detection (CAD) system. FINDINGS: Scattered fibroglandular densities are identified bilaterally. The overall parenchymal pattern is stable. There are benign-appearing parenchymal and vascular calcifications bilaterally. No discrete mass or malignant-appearing microcalcifications are seen. The axillae are unremarkable. IMPRESSION: No mammographic features suspicious for malignancy are identified. ACR BI-RADS Category 2: Benign findings. Result letter will be mailed to the patient. Note: At least 10% of breast cancer is not imaged by mammography. Dictated by: Dictated on workstation # [id number]
== END ==
LOC: RAD 11:01
PROVIDERS: ATTEND Internal Medicine
DX: Z12.31 Encounter for screening mammogram for malignant neoplasm of breast (principal)
CPT/HCPCS: 77067

== ENCOUNTER 2018-02-10 00:31 | Emergency (ER) | payer MEDICARE, OTHER ==
[~2018-02-10] VITALS: Ht 165.1 cm; Wt 61.2 kg
[~2018-02-10 00:31] MED LIST changes: -AMLO5TAB2 PO; +AMLO5TAB7 PO
--- OUTSIDE RECORDS SUMMARY | 2018-02-10 00:36 | XMS REPORT | Continuity of Care Document ---
Author Author [facility] Organization [facility] Address Unknown Phone Unavailable Allergies Active Description Code Type Severity Reaction Onset Reported/Identified Relationship to Patient Clinical Status Yes [id number] (SULFA (SULFONAMIDE ANTIBIOTICS)) [id number] (SULFA (SULFONAMIDE ANTIBIOTICS)) Mild N/A 07/04/2009 Yes Penicillins [id number] Drug Allergy Severe TACHYCARDIA, [place] 05/20/2016 Yes Sulfa (Sulfonamide Antibiotics) [id number] Drug Allergy Severe TACHYCARDIA, [place] 05/20/2016 Yes [id number] (SULFA (SULFONAMIDE ANTIBIOTICS)) [id number] (SULFA (SULFONAMIDE ANTIBIOTICS)) Mild RASH 05/20/2016 Medications There is no data. Problems Date Dx Coded Attending Type Code Diagnosis Diagnosed By 12/31/2010 Ot 244.9 HYPOTHYROIDISM NOS 12/31/2010 Ot 722.4 CERVICAL DISC DEGEN 12/31/2010 Ot 724.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, LUMBAR REG, W/OUT NEURO 12/31/2010 Ot 733.00 OSTEOPOROSIS NOS 02/27/2011 Ot 784.0 HEADACHE 05/21/2011 Ot 789.00 ABDOMINAL PAIN, UNSPECIFIED SITE 06/23/2014 YEHUDA BEDOYA DO Ot V76.12 06/23/2014 YEHUDA BEDOYA DO Ot V76.12 07/14/2014 YEHUDA BEDOYA DO Ot V76.12 02/03/2015 YEHUDA BEDOYA DO Ot 733.00 02/23/2015 YEHUDA BEDOYA DO Ot 733.00 03/07/2015 YEHUDA BEDOYA DO Ot 733.00 06/24/2015 Ot V76.12 06/24/2015 Ot 733.00 06/24/2015 Ot 244.9 06/24/2015 Ot 722.4 06/24/2015 Ot 724.02 06/24/2015 Ot 733.00 06/24/2015 Ot V76.12 06/24/2015 Ot 273.1 06/24/2015 Ot 733.00 06/24/2015 Ot 733.90 06/24/2015 Ot 793.82 06/24/2015 Ot V76.12 06/24/2015 Ot 793.80 06/24/2015 ELKE ALLEN YEHUDA Dustin Ot 733.00 06/24/2015 ELKE ALLEN YEHUDA Dustin Ot V76.12 06/24/2015 ELKE ALLEN YEHUDA Dustin Ot 715.90 06/24/2015 ELKE ALLEN YEHUDA Dustin Ot 719.45 06/24/2015 ELKE ALLEN YEHUDA Dustin Ot 733.00 06/24/2015 ELKE ALLEN YEHUDA Dustin Ot V76.12 06/24/2015 ELKE ALLEN YEHUDA Dustin Ot 733.00 06/27/2015 ELKE ALLEN YEHUDA Dustin Ot Z12.31 07/14/2015 ELKE ALLEN YEHUDA Dustin Ot Z12.31 08/01/2015 ELKE ALLEN YEHUDA Dustin Ot R92.8 04/04/2016 Ot 244.9 HYPOTHYROIDISM NOS 04/04/2016 Ot 722.4 CERVICAL DISC DEGEN 04/04/2016 Ot 724.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, LUMBAR REG, W/OUT NEURO 04/04/2016 Ot 733.00 OSTEOPOROSIS NOS 04/04/2016 Ot V76.12 OT SCREEN MAMMO-MALIGN NEOPLASM OF HUNTER 04/04/2016 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 Ot 733.00 OSTEOPOROSIS NOS 04/04/2016 Ot 733.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 04/04/2016 Ot 793.82 INCONCLUSIVE MAMMOGRAM 04/04/2016 Ot V76.12 OT SCREEN MAMMO-MALIGN NEOPLASM OF HUNTER 04/04/2016 Ot 793.80 UNSPEC ABNORMAL MAMMOGRAM 04/04/2016 ELKE ALLEN YEHUDA Dustin Ot 733.00 OSTEOPOROSIS NOS 04/04/2016 YEHUDA BEDOYA DO Ot V76.12 OT SCREEN MAMMO-MALIGN NEOPLASM OF HUNTER 04/04/2016 YEHUDA BEDOYA DO Ot 715.90 OSTEOARTHROS NOS-UNSPEC 04/04/2016 YEHUDA BEDOYA DO Ot 719.45 JOINT PAIN-PELVIS 04/04/2016 YEHUDA BEDOYA DO Ot 733.00 OSTEOPOROSIS NOS 04/04/2016 YEHUDA BEDOYA DO Ot V76.12 OTH SCREEN MAMMO-MALIGN NEOPLASM OF HUNTER 04/04/2016 ELKE ALLEN YEHUDA Dustin Ot 733.00 OSTEOPOROSIS NOS 04/04/2016 ELKE ALLEN YEHUDA Dustin Ot Z12.31 ENCNTR SCREEN MAMMOGRAM FOR MALIGNANT NE 04/04/2016 ELKE ALLEN YEHUDA Dustin Ot R92.8 OTH ABN AND INCONCLUSIVE FINDINGS ON DX 04/04/2016 YEHUDA BEDOYA DO Ot Z12.31 ENCNTR SCREEN MAMMOGRAM FOR MALIGNANT NE 04/04/2016 YEHUDA BEDOYA DO Ot R92.8 OTH ABN AND INCONCLUSIVE FINDINGS ON DX 04/04/2016 YEHUDA BEDOYA DO Ot 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 04/04/2016 YEHUDA BEDOYA DO Ot 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 04/04/2016 YEHUDA BEDOYA DO Ot 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 05/20/2016 Ot 244.9 HYPOTHYROIDISM NOS 05/20/2016 Ot 722.4 CERVICAL DISC DEGEN 05/20/2016 Ot 724.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, LUMBAR REG, W/OUT NEURO 05/20/2016 Ot 733.00 OSTEOPOROSIS NOS 05/22/2016 YEHUDA BEDOYA DO Ot 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 05/24/2016 BASHIR STACK DO Ot D63.8 ANEMIA IN OTHER CHRONIC DISEASES CLASSIF 05/24/2016 BASHIR STACK DO Ot E03.9 HYPOTHYROIDISM, UNSPECIFIED 05/24/2016 BASHIR STACK DO Ot E87.6 HYPOKALEMIA 05/24/2016 BASHIR STACK DO Ot I10 ESSENTIAL (PRIMARY) HYPERTENSION 05/24/2016 BASHIR STACK DO Ot J18.9 PNEUMONIA, UNSPECIFIED ORGANISM 05/24/2016 BASHIR STACK DO Ot M19.90 UNSPECIFIED OSTEOARTHRITIS, UNSPECIFIED 05/24/2016 BASHIR STACK DO Ot R51 HEADACHE 05/24/2016 BASHIR STACK DO Ot Z96.651 PRESENCE OF RIGHT ARTIFICIAL KNEE JOINT 05/24/2016 BASHIR STACK DO Ot Z96.652 PRESENCE OF LEFT ARTIFICIAL KNEE JOINT 05/24/2016 GWENDOLYN STACK DOI Ot Z98.84 BARIATRIC SURGERY STATUS 06/29/2016 Ot V76.12 OTH SCREEN MAMMO-MALIGN NEOPLASM OF HUNTER 06/29/2016 Ot 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 06/29/2016 Ot 733.00 OSTEOPOROSIS NOS 06/29/2016 Ot 733.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 06/29/2016 Ot 793.82 INCONCLUSIVE MAMMOGRAM 06/29/2016 Ot V76.12 OTH SCREEN MAMMO-MALIGN NEOPLASM OF HUNTER 06/29/2016 Ot 793.80 UNSPEC ABNORMAL MAMMOGRAM 06/29/2016 YEHUDA BEDOYA DO Ot 733.00 OSTEOPOROSIS NOS 06/29/2016 YEHUDA BEDOYA DO, Ot V76.12 OTH SCREEN MAMMO-MALIGN NEOPLASM OF HUNTER 06/29/2016 YEHUDA BEDOYA DO Ot 715.90 OSTEOARTHROS NOS-UNSPEC 06/29/2016 YEHUDA BEDOYA DO Ot 719.45 JOINT PAIN-PELVIS 06/29/2016 YEHUDA BEDOYA DO Ot 733.00 OSTEOPOROSIS NOS 06/29/2016 YEHUDA BEDOYA DO, Ot V76.12 OTH SCREEN MAMMO-MALIGN NEOPLASM OF HUNTER 06/29/2016 YEHUDA BEDOYA DO Ot 733.00 OSTEOPOROSIS NOS 06/29/2016 YEHUDA BEDOYA DO Ot Z12.31 ENCNTR SCREEN MAMMOGRAM FOR MALIGNANT NE 06/29/2016 YEHUDA BEDOYA DO Ot R92.8 OTH ABN AND INCONCLUSIVE FINDINGS ON DX 06/29/2016 YEHUDA BEDOYA DO Ot 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 07/03/2016 YEHUDA BEDOYA DO, Ot Z12.31 ENCNTR SCREEN MAMMOGRAM FOR MALIGNANT NE 07/25/2016 YEHUDA BEDOYA DO, Ot Z12.31 ENCNTR SCREEN MAMMOGRAM FOR MALIGNANT NE 09/20/2016 YEHUDA BEDOYA DO, Ot 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 05/09/2017 YEHUDA BEDOYA DO, Ot 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 06/18/2017 YEHUDA BEDOYA DO, Ot M85.88 OTH DISRD OF BONE DENSITY AND STRUCTURE, 07/08/2017 YEHUDA BEDOYA DO, Ot Z12.31 ENCNTR SCREEN MAMMOGRAM FOR MALIGNANT NE 07/08/2017 Ot 733.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 07/08/2017 Ot 793.82 INCONCLUSIVE MAMMOGRAM 07/08/2017 Ot V76.12 OTH SCREEN MAMMO-MALIGN NEOPLASM OF HUNTER 07/08/2017 Ot 793.80 UNSPEC ABNORMAL MAMMOGRAM 07/08/2017 YEHUDA BDEOYA DO Ot 733.00 OSTEOPOROSIS NOS 07/08/2017 YEHUDA BEDOYA DO Ot V76.12 OTH SCREEN MAMMO-MALIGN NEOPLASM OF HUNTER 07/08/2017 YEHUDA BEDOYA DO Ot 715.90 OSTEOARTHROS NOS-UNSPEC 07/08/2017 YEHUDA BEDOYA DO Ot 719.45 JOINT PAIN-PELVIS 07/08/2017 YEHUDA BEDOYA DO Ot 733.00 OSTEOPOROSIS NOS 07/08/2017 YEHUDA BEDOYA DO, Ot V76.12 OTH SCREEN MAMMO-MALIGN NEOPLASM OF HUNTER 07/08/2017 YEHUDA BEDOYA DO Ot 733.00 OSTEOPOROSIS NOS 07/08/2017 YEHUDA BEDOYA DO, Ot Z12.31 ENCNTR SCREEN MAMMOGRAM FOR MALIGNANT NE 07/08/2017 YEHUDA BEDOYA DO Ot R92.8 OTH ABN AND INCONCLUSIVE FINDINGS ON DX 07/08/2017 YEHUDA BEDOYA DO, Ot 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 07/08/2017 YEHUDA BEDOYA DO, Ot Z12.31 ENCNTR SCREEN MAMMOGRAM FOR MALIGNANT NE 07/08/2017 YEHUDA BEDOYA DO, Ot M85.88 OT DISRD OF BONE DENSITY AND STRUCTURE, 07/08/2017 YEHUDA BEDOYA DO, Ot Z12.31 ENCNTR SCREEN MAMMOGRAM FOR MALIGNANT NE 07/09/2017 YEHUDA BEDOYA DO, Ot Z12.31 ENCNTR SCREEN MAMMOGRAM FOR MALIGNANT NE 07/14/2017 YEHUDA BEDOYA DO, Ot Z12.31 ENCNTR SCREEN MAMMOGRAM FOR MALIGNANT NE 08/07/2017 YEHUDA BEDOYA DO, Ot Z12.31 ENCNTR SCREEN MAMMOGRAM FOR MALIGNANT NE 02/04/2018 YEHUDA BEDOYA DO, Ot M85.88 OT DISRD OF BONE DENSITY AND STRUCTURE, Procedures Code Description Performed By Performed On 53.61 OTHER OPEN INCISIONAL HERNIA REPAIR WITH 08/16/2009 Results Test Result Range Influenza virus A and B antigen detection - 05/20/16 13:15 FLU RESULT NEGATIVE FOR INFLUENZA A AND B ANTIGENS BY [facility] Complete blood count (CBC) with automated white blood cell (WBC) differential - 05/20/16 14:32 Blood leukocytes automated count (number/volume) 8.2 10*3/uL 4.3-11.0 Blood erythrocytes automated count (number/volume) 3.63 10*6/uL 4.35-5.85 Venous blood hemoglobin measurement (mass/volume) 10.1 g/dL 11.5-16.0 Blood hematocrit (volume fraction) 31 % 35-52 Automated erythrocyte mean corpuscular volume 85 [foz_us] 80-99 Automated erythrocyte mean corpuscular hemoglobin (mass per erythrocyte) 28 pg 25-34 Automated erythrocyte mean corpuscular hemoglobin concentration measurement ( mass/volume) 33 g/dL 32-36 Automated erythrocyte distribution width ratio 14.1 % 10.0-14.5 Automated blood platelet count (count/volume) 220 10*3/uL 130-400 Automated blood platelet mean volume measurement 10.7 [foz_us] 7.4-10.4 Automated blood neutrophils/100 leukocytes 76 % 42-75 Automated blood lymphocytes/100 leukocytes 15 % 12-44 Blood monocytes/100 leukocytes 8 % 0-12 Automated blood eosinophils/100 leukocytes 1 % 0-10 Automated blood basophils/100 leukocytes 0 % 0-10 Blood neutrophils automated count (number/volume) 6.2 10*3 1.8-7.8 Blood lymphocytes automated count (number/volume) 1.2 10*3 1.0-4.0 Blood monocytes automated count (number/volume) 0.7 10*3 0.0-1.0 Automated eosinophil count 0.1 10*3/uL 0.0-0.3 Automated blood basophil count (count/volume) 0.0 10*3/uL 0.0-0.1 Blood lactic acid measurement (moles/volume) - 05/20/16 14:32 Blood lactic acid measurement (moles/volume) 1.1 mmol/L 0.5-2.0 Comprehensive metabolic panel - 05/20/16 14:32 Serum or plasma sodium measurement (moles/volume) 139 mmol/L 135-145 Serum or plasma potassium measurement (moles/volume) 3.3 mmol/L 3.6-5.0 Serum or plasma chloride measurement (moles/volume) 102 mmol/L 98-107 Carbon dioxide 23 mmol/L 21-32 Serum or plasma anion gap determination (moles/volume) 14 mmol/L 5-14 Serum or plasma urea nitrogen measurement (mass/volume) 14 mg/dL 7-18 Serum or plasma creatinine measurement (mass/volume) 0.86 mg/dL 0.60-1.30 Serum or plasma urea nitrogen/creatinine mass ratio 16 NRG Serum or plasma creatinine measurement with calculation of estimated glomerular filtration rate > NRG Serum or plasma glucose measurement (mass/volume) 125 mg/dL 70-105 Serum or plasma calcium measurement (mass/volume) 8.4 mg/dL 8.5-10.1 Serum or plasma total bilirubin measurement (mass/volume) 0.4 mg/dL 0.1-1.0 Serum or plasma alkaline phosphatase measurement (enzymatic activity/volume) 79 U/L 40-136 Serum or plasma aspartate aminotransferase measurement (enzymatic activity/ volume) 20 U/L 5-34 Serum or plasma alanine aminotransferase measurement (enzymatic activity/volume ) 15 U/L 0-55 Serum or plasma protein measurement (mass/volume) 6.7 g/dL 6.4-8.2 Serum or plasma albumin measurement (mass/volume) 3.4 g/dL 3.2-4.5 Bacterial blood culture - 05/20/16 14:32 FREE TEXT EXTERNAL SEE COMMENTS NRG QUANTITY OF GROWTH Isolated [facility] [place] Bacterial blood culture [id number] [facility] [place] Bacterial blood culture - 05/20/16 14:39 Bacterial blood culture NG [facility] [place] Sputum Gram stain - 05/21/16 01:07 Bacterial sputum culture - 05/21/16 01:07 Bacterial sputum culture NORMAL NR Complete blood count (CBC) with automated white blood cell (WBC) differential - 05/21/16 06:45 Blood leukocytes automated count (number/volume) 9.8 10*3/uL 4.3-11.0 Blood erythrocytes automated count (number/volume) 3.70 10*6/uL 4.35-5.85 Venous blood hemoglobin measurement (mass/volume) 10.1 g/dL 11.5-16.0 Blood hematocrit (volume fraction) 31 % 35-52 Automated erythrocyte mean corpuscular volume 84 [foz_us] 80-99 Automated erythrocyte mean corpuscular hemoglobin (mass per erythrocyte) 27 pg 25-34 Automated erythrocyte mean corpuscular hemoglobin concentration measurement ( mass/volume) 32 g/dL 32-36 Automated erythrocyte distribution width ratio 14.2 % 10.0-14.5 Automated blood platelet count (count/volume) 230 10*3/uL 130-400 Automated blood platelet mean volume measurement 10.9 [foz_us] 7.4-10.4 Automated blood neutrophils/100 leukocytes 74 % 42-75 Automated blood lymphocytes/100 leukocytes 15 % 12-44 Blood monocytes/100 leukocytes 8 % 0-12 Automated blood eosinophils/100 leukocytes 3 % 0-10 Automated blood basophils/100 leukocytes 0 % 0-10 Blood neutrophils automated count (number/volume) 7.3 10*3 1.8-7.8 Blood lymphocytes automated count (number/volume) 1.5 10*3 1.0-4.0 Blood monocytes automated count (number/volume) 0.7 10*3 0.0-1.0 Automated eosinophil count 0.3 10*3/uL 0.0-0.3 Automated blood basophil count (count/volume) 0.0 10*3/uL 0.0-0.1 Comprehensive metabolic panel - 05/21/16 06:45 Serum or plasma sodium measurement (moles/volume) 139 mmol/L 135-145 Serum or plasma potassium measurement (moles/volume) 3.3 mmol/L 3.6-5.0 Serum or plasma chloride measurement (moles/volume) 105 mmol/L 98-107 Carbon dioxide 25 mmol/L 21-32 Serum or plasma anion gap determination (moles/volume) 9 mmol/L 5-14 Serum or plasma urea nitrogen measurement (mass/volume) 11 mg/dL 7-18 Serum or plasma creatinine measurement (mass/volume) 0.79 mg/dL 0.60-1.30 Serum or plasma urea nitrogen/creatinine mass ratio 14 NRG Serum or plasma creatinine measurement with calculation of estimated glomerular filtration rate > NRG Serum or plasma glucose measurement (mass/volume) 117 mg/dL 70-105 Serum or plasma calcium measurement (mass/volume) 8.1 mg/dL 8.5-10.1 Serum or plasma total bilirubin measurement (mass/volume) 0.3 mg/dL 0.1-1.0 Serum or plasma alkaline phosphatase measurement (enzymatic activity/volume) 79 U/L 40-136 Serum or plasma aspartate aminotransferase measurement (enzymatic activity/ volume) 21 U/L 5-34 Serum or plasma alanine aminotransferase measurement (enzymatic activity/volume ) 14 U/L 0-55 Serum or plasma protein measurement (mass/volume) 6.3 g/dL 6.4-8.2 Serum or plasma albumin measurement (mass/volume) 3.0 g/dL 3.2-4.5 Whole blood basic metabolic panel - 05/22/16 04:55 Serum or plasma sodium measurement (moles/volume) 138 mmol/L 135-145 Serum or plasma potassium measurement (moles/volume) 3.8 mmol/L 3.6-5.0 Serum or plasma chloride measurement (moles/volume) 108 mmol/L 98-107 Carbon dioxide 21 mmol/L 21-32 Serum or plasma anion gap determination (moles/volume) 9 mmol/L 5-14 Serum or plasma urea nitrogen measurement (mass/volume) 10 mg/dL 7-18 Serum or plasma creatinine measurement (mass/volume) 0.73 mg/dL 0.60-1.30 Serum or plasma urea nitrogen/creatinine mass ratio 14 NRG Serum or plasma creatinine measurement with calculation of estimated glomerular filtration rate > NRG Serum or plasma glucose measurement (mass/volume) 99 mg/dL 70-105 Serum or plasma calcium measurement (mass/volume) 7.7 mg/dL 8.5-10.1 Erythrocyte sedimentation rate by westergren method - 05/22/16 04:55 Erythrocyte sedimentation rate by westergren method 81 mm 0-30 Encounters ACCT No. Visit Date/Time Discharge Status Pt. Type Provider Facility Loc./Unit Complaint [id number] 07/08/2017 11:01:00 07/08/2017 23:59:59 CLS Outpatient YEHUDA BEDOYA DO [facility] RAD SCREEN [id number] 05/23/2017 09:37:00 05/23/2017 23:59:59 CLS Outpatient YEHUDA BEDOYA DO [facility] RAD M81.0 [id number] 05/03/2017 13:13:00 05/03/2017 23:59:59 CLS Preadmit YEHUDA BEDOYA DO [facility] RAD M81.0 [id number] 07/02/2016 09:31:00 07/02/2016 23:59:59 CLS Outpatient BEDOYALILY ALLEN YEHUDA Dustin [facility] RAD SCREENING [id number] 05/20/2016 16:26:00 05/24/2016 11:45:00 DIS Inpatient BASHIR STACK DO [facility] 4TH PNEUMONIA RRL, RT FACIAL PAIN [id number] 04/04/2016 13:03:00 04/04/2016 23:59:59 CLS Outpatient BEDOYALILY ALLEN YEHUDA Dustin [facility] M81.0 [id number] 07/06/2015 13:01:00 07/06/2015 23:59:59 CLS Outpatient YEHUDA BEDOYA DO [facility] RAD ABNORMAL MAMMO [id number] 06/24/2015 10:34:00 06/24/2015 23:59:59 CLS Outpatient YEHUDA BDEOYA DO [facility] RAD SCREENING [id number] 02/01/2015 13:07:00 02/01/2015 23:59:59 CLS Outpatient YEHUDA BEDOYA DO [facility] OSTEOPOROSIS [id number] 06/21/2014 10:53:00 06/21/2014 23:59:59 CLS Outpatient YEHUDA BEDOYA DO [facility] RAD SCREENING [id number] 01/15/2014 12:37:00 01/15/2014 23:59:59 CLS Outpatient YEHUDA BEDOYA DO [facility] OSTEOPOROSIS [id number] 09/21/2013 10:36:00 09/21/2013 23:59:59 CLS Outpatient YEHUDA BEDOYA DO [facility] RAD DJD,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 [id number] 06/18/2013 09:43:00 06/18/2013 23:59:59 CLS Outpatient YEHUDA BEDOYA DO [facility] RAD ROUTINE [id number] 11/26/2012 12:38:00 11/26/2012 23:59:59 CLS Outpatient YEHUDA BEDOYA DO [facility] OSTEOPOROSIS [id number] 04/11/2015 12:16:00 Document Registration [id number] 05/18/2014 09:49:00 Document Registration [id number] 07/16/2012 13:05:00 Document Registration [id number] 06/17/2012 09:21:00 Document Registration [id number] 02/08/2012 08:19:00 Document Registration [id number] 11/26/2011 12:38:00 Document Registration [id number] 09/26/2011 10:15:00 Document Registration [id number] 06/15/2011 09:34:00 Document Registration [id number] 05/21/2011 13:55:00 Document Registration [id number] 02/26/2011 23:50:00 Document Registration [id number] 01/01/2011 13:45:00 Document Registration [id number] 10/04/2010 12:28:00 Document Registration [id number] 10/04/2010 07:30:00 Document Registration [id number] 06/05/2010 08:38:00 Document Registration [id number] 02/02/2015 05:16:51 ACT Document Registration
--- NOTE | 2018-02-10 01:27 | ED Abdominal Pain ---
General Chief Complaint: Abdominal/GI Problems Stated Complaint: R SIDE PAIN Source of Information: Patient, Family Exam Limitations: No Limitations History of Present Illness Date Seen by Provider: Feb 10, 2018 Time Seen by Provider: 01:14 Initial Comments Patient presents to ER by private conveyance with her daughter and chief complaint she's having some right upper quadrant abdominal pain that has been going on episodically for the past 20 years. She's had multiple surgeries on her belly including exploratory surgeries, CT imaging, had her gallbladder removed her bile ducts reconstructed, stents placed, fundoplication and then took a fundoplication down as well as other abdominal surgeries and has exhausted all of her GI doctors and surgeons ability to explain why she is having her right upper quadrant abdominal pain. But she knows helps is that occasionally she will use hydrocodone one to 2 tablets and that usually works but for the past for 5 days this episode has not responded to one to 2 hydrocodone a day. She took her last hydrocodone at 2100 last night and took another 1 couple hours later. She had a bowel movement yesterday morning it was small. She says she has chronic constipation whenever she uses the hydrocodone. She is not using anything for the bowels right now. She does note that she's had a little bit of urinary incontinence and frequency but no dysuria, hematuria. She does not have any nausea but she says she feels like she would feel better if she could vomit. She has not had any fevers chills sweats, diarrhea, sick contacts or travel outside the [facility]. Allergies and Home Medications Allergies Coded Allergies: Penicillins (Verified Allergy, Severe, TACHYCARDIA, COULDN'T BREATHE, ) Sulfa (Sulfonamide Antibiotics) (Verified Allergy, Severe, TACHYCARDIA, COULDN'T BREATHE, 05/20/16) Uncoded Allergies: [id number] (SULFA (SULFONAMIDE ANTIBIOTICS)) (Allergy, Mild, RASH, 05/20/16) heart palpatations Home Medications Amlodipine Besylate 5 Mg Tablet, 5 MG PO DAILY, (Reported) Beta-Carotene(A) W-C & E/Min 1 Each Tablet, 1 TAB PO DAILY, (Reported) Calcium Carbonate/Vitamin D3 1 Each Tablet, 1 TAB PO DAILY, (Reported) Cefdinir 300 Mg Capsule, 300 MG PO BID Prescribed by: BASHIR STACK on 05/24/16650 Cholecalciferol (Vitamin D3) 400 Unit Capsule, 400 UNIT PO DAILY, (Reported) Cyanocobalamin (Vitamin B-12) 500 Mcg Tablet, 500 MCG PO DAILY, (Reported) Cyclobenzaprine HCl 5 Mg Tablet, 5 MG PO TID, (Reported) Guaifenesin/Dextromethorphan 5 Ml Syrup, 5 ML PO Q4H PRN for COUGH Prescribed by: BASHIR STACK on 05/24/16650 Hydrocodone Bit/Acetaminophen 1 Each Tablet, 1 TAB PO DAILY PRN for PAIN, ( Reported) Levothyroxine Sodium 88 Mcg Tablet, 88 MCG PO DAILY, (Reported) Lutein 20 Mg Tablet, 20 MG PO DAILY, (Reported) Multivitamin with Minerals 1 Each Tablet, 1 TAB PO DAILY, (Reported) Omeprazole 20 Mg Capsule.dr, 20 MG PO DAILY, (Reported) Tramadol HCl 50 Mg Tablet, 50-100 MG PO Q6H PRN for PAIN, (Reported) Patient Home Medication List Home Medication List Reviewed: Yes Review of Systems Review of Systems Constitutional: No chills, No diaphoresis, No fever, No malaise EENTM: No Blurred Vision, No Double Vision Respiratory: Denies Cough, Denies Shortness of Air Cardiovascular: Denies Chest Pain, Denies Lightheadedness Gastrointestinal: See HPI; Denies Abdomen Distended; Abdominal Pain; Denies Blood Streaked Stools, Denies Constipated, Denies Diarrhea, Denies Difficulty Swallowing, Denies Nausea Genitourinary: Denies Burning, Denies Discharge; Frequency; Denies Hematuria Musculoskeletal: No back pain, No joint pain Skin: No pruritus, No rash Psychiatric/Neurological: Denies Headache, Denies Numbness Endocrine: Denies Flushing, Denies Intolerance to Cold Past Rkcmeda-Cwozjf-Pixzlv Hx Patient Social History Alcohol Use: Denies Use Recreational Drug Use: No Smoking Status: Never a Smoker Recent Foreign Travel: No Contact w/Someone Who Travel: No Recent Hopitalizations: No Immunizations Up To Date Tetanus Booster (TDap): Unknown Date of Pneumonia Vaccine: Jan 13, 2014 Date of Influenza Vaccine: Feb 18, 2016 Seasonal Allergies Seasonal Allergies: No Past Medical History Abdominal, Joint Replacement, Orthopedic, Tonsillectomy Currently Using CPAP: No Currently Using BIPAP: No Hypertension Reproductive Disorders: Yes Sexually Transmitted Disease: No Bladder Infection Arthritis Hypothyroidsim Adverse Reaction/Blood Tranf: No Family Medical History Patient reports no known family medical history. Physical Exam Vital Signs Capillary Refill : Height/Weight/BMI Height: 5'4.00" Weight: 150lbs. 0.0oz. 68.566322kc; 25.8 BMI Method:Stated General Appearance: WD/WN, no apparent distress HEENT: PERRL/EOMI, normal ENT inspection, TMs normal, pharynx normal Neck: non-tender, full range of motion, supple, normal inspection Respiratory: chest non-tender, lungs clear, normal breath sounds, no respiratory distress, no accessory muscle use Cardiovascular: normal peripheral pulses, regular rate, rhythm Peripheral Pulses: 2+ Radial Pulses (R), 2+ Radial Pulses (L) Gastrointestinal: normal bowel sounds, soft; No rebound; tenderness (mild RUQ) Extremities: non-tender, normal inspection, no pedal edema, normal capillary refill Neurologic/Psychiatric: alert, oriented x 3 Skin: normal color, warm/dry Progress/Results/Core Measures Results/Orders Lab Results Laboratory Tests Test 02/10/18 01:40 Range/Units Urine Color YELLOW Urine Clarity CLEAR Urine pH 7 5-9 Urine Specific [place] 1.005 L 1.016-1.022 Urine Protein NEGATIVE NEGATIVE Urine Glucose (UA) NEGATIVE NEGATIVE Urine Ketones 1+ H NEGATIVE Urine Nitrite NEGATIVE NEGATIVE Urine Bilirubin NEGATIVE NEGATIVE Urine Urobilinogen NORMAL NORMAL MG/DL Urine Leukocyte Esterase 1+ H NEGATIVE Urine RBC (Auto) NEGATIVE NEGATIVE Urine RBC NONE /HPF Urine WBC RARE /HPF Urine Squamous Epithelial Cells 0-2 /HPF Urine Crystals NONE /LPF Urine Bacteria LARGE H /HPF Urine Casts NONE /LPF Urine Mucus NEGATIVE /LPF Urine Culture Indicated YES My Orders Orders - LISA EDGE Ketorolac Injection (Toradol Injection) (02/10/18 01:30) Ua Culture If Indicated (02/10/18 01:52) Urine Culture (02/10/18 01:40) Medications Given in ED Current Medications Medications Dose Ordered Sig/[place] Route Start Time Stop Time Status Last Admin Dose Admin Ketorolac Tromethamine 30 mg ONCE ONCE IM 02/10/18 01:30 02/10/18 01:31 DC 02/10/18 01:30 30 MG Progress Progress Note : Time: 01:27 Progress Note We have discussed goals of care and is seems like Mrs. Cervantes is looking for control of her pain. She would prefer not to use opiates over to try Toradol start with. She is not on a blood thinner nor she have a coronary artery disease history. If the Toradol is not helpful IM Will re-address. She is complaining of some urine symptoms so we'll get a UA. She does not want us to launch into more elaborate workup with blood or CT or other imaging because she says she's been worked up exhaustively. Departure Impression Primary Impression: Abdominal pain Qualified Codes: R10.11 - Right upper quadrant pain Disposition: HOME, SELF-CARE Condition: Improved Departure-Patient Inst. Decision time for Depature: 02:19 Referrals: YEHUDA POON DO (PCP/Family) Primary Care Physician Patient Instructions: Acute Abdomen (Belly Pain), Adult (DC) Add. Discharge Instructions: Please keep your scheduled appointment to follow-up in the next week with Dr. Poon. Return to the ER if you have severe fever pain or other worrisome symptoms. All discharge instructions reviewed with patient and/or family. Voiced understanding. Copy Copies To 1: YEHUDA POON TITUS J Feb 10, 2018 01:27
[2018-02-10] MEDS ORDERED: KETOROLAC 30 MG/ML VIAL IM ONE (01:30)
[2018-02-10 02:00] LABS: BILIRUBIN,URINE NEGATIVE (NEGATIVE); CLARITY,URINE CLEAR; COLOR,URINE YELLOW; GLUCOSE, URINE (UA) NEGATIVE (NEGATIVE); KETONES,URINE 1+ (NEGATIVE); LEUKOCYTE ESTERASE ,URINE 1+ (NEGATIVE); NITRITE,URINE NEGATIVE (NEGATIVE); PH,URINE 7 (5-9); PROTEIN,URINE NEGATIVE (NEGATIVE); UROBILINOGEN,URINE NORMAL (NORMAL)
[2018-02-10 02:08] LABS: BACTERIA,URINE LARGE /HPF; SQUAMOUS EPITHELIAL CELL,UR 0-2 /HPF; WBC,URINE RARE /HPF
[2018-02-10 02:25] VITALS: BP 175/70
== END 2018-02-10 02:27 | disposition home or self-care (01) ==
LOC: EDUNIT# 00:31 → ER 00:32
DX: R10.11 Right upper quadrant pain (principal); I10 Essential (primary) hypertension; E03.9 Hypothyroidism, unspecified; Z87.448 Personal history of other diseases of urinary system; Z88.0 Allergy status to penicillin; Z88.2 Allergy status to sulfonamides; Z87.19 Personal history of other diseases of the digestive system; Z90.89 Acquired absence of other organs
CPT/HCPCS: 81000; 87077; 87088; 87186; 96372; 99284

== ENCOUNTER → 2018-07-10 | Outpatient (CLI) | payer MEDICARE, OTHER ==
[~2018-07-10] MED LIST changes: -AMLO5TAB7 PO; +AMLO5TAB9 PO
--- NOTE | 2018-07-10 19:24 | Diagnostic Imaging Report ---
INDICATION: Routine screening. COMPARISON: Comparison is made with prior mammograms from 07/08/2017 and 07/02/2016. TECHNIQUE: 2D and 3D bilateral screening mammography was performed with computer-aided detection (CAD) system. FINDINGS: Scattered fibroglandular densities are identified bilaterally. Vascular calcifications are again noted bilaterally. No dominant mass or malignant appearing microcalcifications are identified. The axillae are unremarkable. IMPRESSION: No mammographic features suspicious for malignancy are identified. ACR BI-RADS Category 2: Benign findings. Result letter will be mailed to the patient. Note: At least 10% of breast cancer is not imaged by mammography. Dictated by: Dictated on workstation # [id number]
== END ==
LOC: RAD 09:40
PROVIDERS: ATTEND Internal Medicine
DX: Z12.31 Encounter for screening mammogram for malignant neoplasm of breast (principal)
CPT/HCPCS: 77067

== ENCOUNTER 2018-10-12 07:39 | Inpatient (IN) | payer MEDICARE, OTHER ==
[~2018-10-12] VITALS: Ht 165.1 cm; Wt 60.8 kg
--- OUTSIDE RECORDS SUMMARY | 2018-10-12 07:45 | XMS REPORT | Continuity of Care Document ---
Author Organization Unknown Address Unknown Allergies Active Description Code Type Severity Reaction Onset Reported/Identified Relationship to Patient Clinical Status Yes [id number] (SULFA (SULFONAMIDE ANTIBIOTICS)) [id number] (SULFA (SULFONAMIDE ANTIBIOTICS)) Mild N/A 07/04/2009 Yes Penicillins [id number] Drug Allergy Severe TACHYCARDIA, [place] 05/20/2016 Yes Sulfa (Sulfonamide Antibiotics) [id number] Drug Allergy Severe TACHYCARDIA, [place] 05/20/2016 Yes [id number] (SULFA (SULFONAMIDE ANTIBIOTICS)) [id number] (SULFA (SULFONAMIDE ANTIBIOTICS)) Mild RASH 05/20/2016 Medications [...] YEHUDA BEDOYA DO Ot 733.00 03/07/2015 YEHUDA BEDYOA DO Ot 733.00 06/24/2015 Ot V76.12 06/24/2015 Ot 733.00 06/24/2015 Ot 244.9 06/24/2015 Ot 722.4 06/24/2015 Ot 724.02 06/24/2015 Ot 733.00 06/24/2015 Ot V76.12 06/24/2015 Ot 273.1 06/24/2015 Ot 733.00 06/24/2015 Ot 733.90 06/24/2015 Ot 793.82 06/24/2015 Ot V76.12 06/24/2015 Ot 793.80 06/24/2015 ELKE ALLEN YEHUDA Chan Ot 733.00 06/24/2015 ELKE ALLEN YEHUDA Dustin Ot V76.12 06/24/2015 ELKE ALLEN YEHUDA Dustin Ot 715.90 06/24/2015 ELKE ALLEN YEHUDA Dustin Ot 719.45 06/24/2015 ELKE ALLEN YEHUDA Dustin Ot 733.00 06/24/2015 ELKE ALLEN YEHUDA Chan Ot V76.12 06/24/2015 ELKE ALLEN YEHUDA Chan Ot 733.00 06/27/2015 ELKE ALLEN YEHUDA Dustin Ot Z12.31 07/14/2015 ELKE ALLEN YEHUDA Dustin Ot Z12.31 08/01/2015 ELKE ALLEN YEHUDA Dustin Ot R92.8 04/04/2016 Ot 244.9 HYPOTHYROIDISM NOS 04/04/2016 Ot 722.4 CERVICAL DISC DEGEN 04/04/2016 Ot 724.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, LUMBAR REG, W/OUT NEURO 04/04/2016 Ot 733.00 OSTEOPOROSIS NOS 04/04/2016 Ot V76.12 OT SCREEN MAMMO- MALIGN NEOPLASM OF HUNTER 04/04/2016 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 Ot 733.00 OSTEOPOROSIS NOS 04/04/2016 Ot 733.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 04/04/2016 Ot 793.82 INCONCLUSIVE MAMMOGRAM 04/04/2016 Ot V76.12 OTH SCREEN MAMMO- MALIGN NEOPLASM OF HUNTER 04/04/2016 Ot 793.80 UNSPEC ABNORMAL MAMMOGRAM 04/04/2016 ELKE ALLEN YEHUDA Dustin Ot 733.00 OSTEOPOROSIS NOS 04/04/2016 ELKE ALLEN YEHUDA Dustin Ot V76.12 OT SCREEN MAMMO-MALIGN NEOPLASM OF HUNTER 04/04/2016 YEHUDA BEDOYA DO Ot 715.90 OSTEOARTHROS NOS-UNSPEC 04/04/2016 YEHUDA BEDOYA DO Ot 719.45 JOINT PAIN-PELVIS 04/04/2016 YEHUAD BEDOYA DO Ot 733.00 OSTEOPOROSIS NOS 04/04/2016 YEHUDA BEDOYA DO Ot V76.12 OTH SCREEN MAMMO-MALIGN NEOPLASM OF HUNTER 04/04/2016 YEHUDA BEDOYA DO Ot 733.00 OSTEOPOROSIS NOS 04/04/2016 YEHUDA BEDOYA DO Ot Z12.31 ENCNTR [...] PRESENCE OF LEFT ARTIFICIAL KNEE JOINT 05/24/2016 BASHIR STACK DO Ot Z98.84 BARIATRIC SURGERY STATUS 06/29/2016 Ot V76.12 OTH SCREEN MAMMO- MALIGN NEOPLASM OF HUNTER 06/29/2016 Ot 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 06/29/2016 Ot 733.00 OSTEOPOROSIS NOS 06/29/2016 Ot 733.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 06/29/2016 Ot 793.82 INCONCLUSIVE MAMMOGRAM 06/29/2016 Ot V76.12 OTH SCREEN MAMMO- MALIGN NEOPLASM OF HUNTER 06/29/2016 Ot 793.80 UNSPEC ABNORMAL MAMMOGRAM 06/29/2016 YEHUDA BEDOYA DO Ot 733.00 OSTEOPOROSIS NOS 06/29/2016 YEHUDA BEDOYA DO, Ot V76.12 OTH SCREEN MAMMO-MALIGN NEOPLASM OF HUNTER 06/29/2016 YEHUDA BEDOYA DO Ot 715.90 OSTEOARTHROS NOS-UNSPEC 06/29/2016 YEHUDA BEDOYA DO Ot 719.45 JOINT PAIN-PELVIS 06/29/2016 YEHUDA BDEOYA DO Ot 733.00 OSTEOPOROSIS NOS 06/29/2016 YEHUDA BEDOYA DO, Ot V76.12 OTH SCREEN MAMMO-MALIGN NEOPLASM OF HUNTER 06/29/2016 YEHUDA BEDOYA DO Ot 733.00 OSTEOPOROSIS NOS 06/29/2016 YEHUDA BEDOYA DO Ot Z12.31 ENCNTR SCREEN MAMMOGRAM FOR MALIGNANT NE 06/29/2016 YEHUDA BEDOYA DO Ot R92.8 OTH ABN AND INCONCLUSIVE FINDINGS ON DX 06/29/2016 YEHUDA BEDOYA DO, Ot 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 07/03/2016 YEHUAD BEDOYA DO, Ot Z12.31 ENCNTR SCREEN MAMMOGRAM FOR MALIGNANT NE 07/25/2016 YEHUDA BEDOYA DO, Ot Z12.31 ENCNTR SCREEN MAMMOGRAM FOR MALIGNANT NE 09/20/2016 YEHUDA BEDOYA DO Ot 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 05/09/2017 YEHUDA BEDOYA DO, Ot 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 06/18/2017 YEHUDA BEDOYA DO, Ot M85.88 OTH DISRD OF BONE DENSITY AND STRUCTURE, 07/08/2017 YEHUDA BEDOYA DO, Ot Z12.31 ENCNTR SCREEN MAMMOGRAM FOR MALIGNANT NE 07/08/2017 Ot 733.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 07/08/2017 Ot 793.82 INCONCLUSIVE MAMMOGRAM 07/08/2017 Ot V76.12 OTH SCREEN MAMMO- MALIGN NEOPLASM OF HUNTER 07/08/2017 Ot 793.80 UNSPEC ABNORMAL MAMMOGRAM 07/08/2017 YEHUDA BEDOYA DO Ot 733.00 OSTEOPOROSIS NOS 07/08/2017 YEHUDA BEDOYA DO Ot V76.12 OTH SCREEN MAMMO-MALIGN NEOPLASM OF [place]UNTER 07/08/2017 YEHUDA BEDOYA DO Ot 715.90 OSTEOARTHROS NOS-UNSPEC 07/08/2017 YEHUDA BEDOYA DO Ot 719.45 JOINT PAIN-PELVIS 07/08/2017 YEHUDA EBDOYA DO Ot 733.00 OSTEOPOROSIS NOS 07/08/2017 YEHUDA BEDOYA DO, Ot V76.12 OTH SCREEN MAMMO-MALIGN NEOPLASM OF [place]UNTER 07/08/2017 YEHUDA BEDOYA DO Ot 733.00 OSTEOPOROSIS NOS 07/08/2017 YEHUDA BEDOYA DO, Ot Z12.31 ENCNTR SCREEN MAMMOGRAM FOR MALIGNANT NE 07/08/2017 YEHUDA BEDOYA DO Ot R92.8 OTH ABN AND INCONCLUSIVE FINDINGS ON DX 07/08/2017 YEHUDA BEDOYA DO Ot M81.0 AGE-RELATED OSTEOPOROSIS [...] OT DISRD OF BONE DENSITY AND STRUCTURE, 02/10/2018 BEDOYA DO, YEHUDA J Ot Z12.31 ENCNTR SCREEN MAMMOGRAM FOR MALIGNANT NE 02/10/2018 YEHUDA BEDOYA DO Ot R92.8 OTH ABN AND INCONCLUSIVE FINDINGS ON DX 02/10/2018 YEHUDA BEDOYA DO Ot 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 02/10/2018 YEHUDA BEDOYA DO Ot Z12.31 ENCNTR SCREEN MAMMOGRAM FOR MALIGNANT NE 02/10/2018 YEHUDA BEDOYA DO Ot M85.88 OTH DISRD OF BONE DENSITY AND STRUCTURE, 02/10/2018 YEHUDA BEDOYA DO Ot Z12.31 ENCNTR SCREEN MAMMOGRAM FOR MALIGNANT NE 02/10/2018 YEHUDA BEDOYA DO Ot 733.00 OSTEOPOROSIS NOS 02/10/2018 YEHUDA BEDOYA DO Ot V76.12 OTH SCREEN MAMMO-MALIGN NEOPLASM OF [place]UNTER 02/10/2018 YEHUDA BEDOYA DO Ot 715.90 OSTEOARTHROS NOS-UNSPEC 02/10/2018 YEHUDA BEDOYA DO Ot 719.45 JOINT PAIN-PELVIS 02/10/2018 YEHUDA BEDOYA DO Ot 733.00 OSTEOPOROSIS NOS 02/10/2018 YEHUDA BEDOYA DO Ot V76.12 OTH SCREEN MAMMO-MALIGN NEOPLASM OF HUNTER 02/10/2018 YEHUDA BEDOYA DO Ot 733.00 OSTEOPOROSIS NOS 02/10/2018 YEHUDA BEDOYA DO Ot Z12.31 ENCNTR SCREEN MAMMOGRAM FOR MALIGNANT NE 02/10/2018 YEHUDA BEDOYA DO Ot R92.8 OTH ABN AND INCONCLUSIVE FINDINGS ON DX 02/10/2018 YEHUDA BEDOYA DO Ot 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 02/10/2018 YEHUDA BEDOYA DO Ot Z12.31 ENCNTR SCREEN MAMMOGRAM FOR MALIGNANT NE 02/10/2018 YEHUDA BEDOYA DO Ot M85.88 OTH DISRD OF BONE DENSITY AND STRUCTURE, 02/10/2018 YEHUDA BEDOYA DO Ot Z12.31 ENCNTR SCREEN MAMMOGRAM FOR MALIGNANT NE 02/10/2018 LISA EDGE MD Ot E03.9 HYPOTHYROIDISM, UNSPECIFIED 02/10/2018 LISA EDGE MD Ot I10 ESSENTIAL (PRIMARY) HYPERTENSION 02/10/2018 LISA EDGE MD Ot R10.11 RIGHT UPPER QUADRANT PAIN 02/10/2018 LISA EDGE MD Ot Z87.19 PERSONAL HISTORY OF OTHER DISEASES OF TH 02/10/2018 LISA EDGE MD Ot Z87.448 PERSONAL HISTORY OF OTHER DISEASES OF UR 02/10/2018 LISA EDGE MD Ot Z88.0 ALLERGY STATUS TO PENICILLIN 02/10/2018 LISA EDGE MD Ot Z88.2 ALLERGY STATUS TO SULFONAMIDES STATUS 02/10/2018 LISA EDGE MD Ot Z90.89 ACQUIRED ABSENCE OF OTHER ORGANS 02/12/2018 LISA EDGE MD Ot E03.9 HYPOTHYROIDISM, UNSPECIFIED 02/12/2018 LISA EDGE MD Ot I10 ESSENTIAL (PRIMARY) HYPERTENSION 02/12/2018 LISA EDGE MD Ot R10.11 RIGHT UPPER QUADRANT PAIN 02/12/2018 LISA EDGE MD Ot Z87.19 PERSONAL HISTORY OF OTHER DISEASES OF TH 02/12/2018 LISA EDGE MD Ot Z87.448 PERSONAL HISTORY OF OTHER DISEASES OF UR 02/12/2018 LISA EDGE MD Ot Z88.0 ALLERGY STATUS TO PENICILLIN 02/12/2018 LISA EDGE MD Ot Z88.2 ALLERGY STATUS TO SULFONAMIDES STATUS 02/12/2018 LISA EDGE MD Ot Z90.89 ACQUIRED ABSENCE OF OTHER ORGANS 07/10/2018 YEHUDA BEDOYA DO, Ot Z12.31 ENCNTR SCREEN MAMMOGRAM FOR MALIGNANT NE 07/10/2018 YEHUDA BEDOYA DO, Ot Z12.31 ENCNTR SCREEN MAMMOGRAM FOR MALIGNANT NE 07/30/2018 YEHUDA BEDOYA DO, Ot Z12.31 ENCNTR SCREEN MAMMOGRAM FOR MALIGNANT NE Procedures Code Description Performed By Performed On 53.61 OTHER OPEN INCISIONAL HERNIA REPAIR WITH 08/16/2009 Results Test Result Range Influenza virus A and B antigen detection - 05/20/16 13:15 FLU RESULT NEGATIVE FOR INFLUENZA A AND B ANTIGENS BY [facility] Complete blood count (CBC) with automated white [...] Automated erythrocyte mean corpuscular hemoglobin concentration measurement (mass/volume) 33 g/dL 32-36 Automated erythrocyte distribution width ratio 14.1 % 10.0- 14.5 Automated blood platelet count (count/volume) 220 10*3/uL [...] Blood monocytes automated count (number/volume) 0.7 10*3 0.0- 1.0 Automated eosinophil count 0.1 10*3/uL 0.0-0.3 Automated blood basophil count (count/volume) 0.0 10*3/uL 0.0-0.1 Blood lactic acid measurement (moles/volume) - 05/20/16 14:32 Blood lactic acid measurement (moles/volume) 1.1 mmol/L 0.5- 2.0 Comprehensive metabolic panel - 05/20/16 14:32 Serum [...] Serum or plasma aspartate aminotransferase measurement (enzymatic activity/volume) 20 U/L 5-34 Serum or plasma alanine aminotransferase measurement (enzymatic activity/volume) 15 U/L 0-55 Serum or plasma protein measurement (mass/volume) 6.7 g/dL 6.4-8.2 Serum or plasma albumin measurement (mass/volume) 3.4 g/dL 3.2-4.5 Bacterial blood culture - 05/20/16 14:32 FREE TEXT EXTERNAL SEE COMMENTS NRG QUANTITY OF GROWTH Isolated NRG Bacterial blood culture [id number] NRG Bacterial blood culture - 05/20/16 14:39 Bacterial blood culture NG NRG Sputum Gram stain - 05/21/16 01:07 Bacterial sputum culture - 05/21/16 01:07 Bacterial sputum culture NORMAL NRG Complete blood count (CBC) with automated white [...] Automated erythrocyte mean corpuscular hemoglobin concentration measurement (mass/volume) 32 g/dL 32-36 Automated erythrocyte distribution width ratio 14.2 % 10.0- 14.5 Automated blood platelet count (count/volume) 230 10*3/uL [...] Blood monocytes automated count (number/volume) 0.7 10*3 0.0- 1.0 Automated eosinophil count 0.3 10*3/uL 0.0-0.3 Automated [...] Serum or plasma aspartate aminotransferase measurement (enzymatic activity/volume) 21 U/L 5-34 Serum or plasma alanine aminotransferase measurement (enzymatic activity/volume) 14 U/L 0-55 Serum or plasma protein [...] rate by westergren method 81 mm 0-30 Complete urinalysis with reflex to culture - 02/10/18 01:40 Urine color determination YELLOW NRG Urine clarity determination CLEAR NRG Urine pH measurement by test strip 7 5-9 Specific gravity of urine by test strip 1.005 1.016-1.022 Urine protein assay by test strip, semi-quantitative NEGATIVE NEGATIVE Urine glucose detection by automated test strip NEGATIVE NEGATIVE Erythrocytes detection in urine sediment by light microscopy NEGATIVE NEGATIVE Urine ketones detection by automated test strip 1+ NEGATIVE Urine nitrite detection by test strip NEGATIVE NEGATIVE Urine total bilirubin detection by test strip NEGATIVE NEGATIVE Urine urobilinogen measurement by automated test strip (mass/volume) NORMAL NORMAL Urine leukocyte esterase detection by dipstick 1+ NEGATIVE Automated urine sediment erythrocyte count by microscopy (number/high power field) NONE NRG Automated urine sediment leukocyte count by microscopy (number/high power field) RARE NRG Bacteria detection in urine sediment by light microscopy LARGE NRG Squamous epithelial cells detection in urine sediment by light microscopy 0-2 NRG Crystals detection in urine sediment by light microscopy NONE NRG Casts detection in urine sediment by light microscopy NONE NRG Mucus detection in urine sediment by light microscopy NEGATIVE NRG Complete urinalysis with reflex to culture YES NRG Bacterial urine culture - 02/10/18 01:40 Bacterial urine culture SEE COMMEN NRG COLONY COUNT . NRG FTX;REPORTABLE SUSCEPTIBILITY REPORTED [id number] NR FREE TEXT ENTRY 2 ESBL PRODUCING ORGANISM NR RML Sensitivity Panel - 02/10/18 01:40 Gentamicin susceptibility test by minimum inhibitory concentration <= NRG Trimethoprim/sulfamethoxazole susceptibility test by minimum inhibitoryconcentration > NRG Levofloxacin susceptibility test by minimum inhibitory concentration > NRG Ampicillin susceptibility test by minimum inhibitory concentration > NRG Cefazolin susceptibility test by minimum inhibitory concentration > NRG Ceftriaxone susceptibility test by minimum inhibitory concentration > NRG Ciprofloxacin susceptibility test by minimum inhibitory concentration > NRG Meropenem susceptibility test by minimum inhibitory concentration <= NRG Nitrofurantoin susceptibility test by minimum inhibitory concentration > NRG Amoxicillin and clavulanate potassium susc DAVID R NRG Encounters ACCT No. Visit Date/Time Discharge Status Pt. Type Provider Facility Loc./Unit Complaint [id number] 07/10/2018 09:40:00 07/10/2018 23:59:59 CLS Outpatient YEHUDA BEDOYA DO [facility] RAD SCREEN [id number] 02/10/2018 00:32:00 02/10/2018 02:27:00 DIS Emergency LISA EDGE MD [facility] ER R SIDE PAIN [id number] 07/08/2017 11:01:00 07/08/2017 23:59:59 CLS Outpatient YEHUDA BEDOYA DO [facility] RAD SCREEN [id number] 05/23/2017 09:37:00 05/23/2017 23:59:59 CLS Outpatient YEHUDA BEDOYA DO [facility] RAD M81.0 [id number] 05/03/2017 13:13:00 05/03/2017 23:59:59 CLS Preadmit YEHUDA BEDOYA DO [facility] RAD M81.0 [id number] 07/02/2016 09:31:00 07/02/2016 23:59:59 CLS Outpatient YEHUDA BEDOYA DO [facility] RAD SCREENING [id number] 05/20/2016 16:26:00 05/24/2016 11:45:00 DIS Inpatient BASHIR STACK DO [facility] 4TH PNEUMONIA RRL, RT FACIAL PAIN [id number] 04/04/2016 13:03:00 04/04/2016 23:59:59 CLS Outpatient BEDOYA YEHUDA ALLEN [facility] M81.0 [id number] 07/06/2015 13:01:00 07/06/2015 23:59:59 CLS Outpatient BEDOYA DOYEHUDA Dustin [facility] RAD ABNORMAL MAMMO [id number] 06/24/2015 10:34:00 06/24/2015 23:59:59 CLS Outpatient BEDOYA DOYEHUDA Dustin [facility] RAD SCREENING [id number] 02/01/2015 13:07:00 02/01/2015 23:59:59 KALI Outpatient ELKE ALLEN YEHUDA Dustin [facility] OSTEOPOROSIS [id number] 06/21/2014 10:53:00 06/21/2014 23:59:59 CLS Outpatient ELKE ALLEN YEHUDA Dustin [facility] RAD SCREENING [id number] 01/15/2014 12:37:00 01/15/2014 23:59:59 CLS Outpatient ELKE ALLEN YEHUDA Dustin [facility] OSTEOPOROSIS [id number] 09/21/2013 10:36:00 09/21/2013 23:59:59 CLS Outpatient BEDOYALILY ALLEN YEHUDA Dustin [facility] RAD DJD,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 [id number] 06/18/2013 09:43:00 06/18/2013 23:59:59 CLS Outpatient ELKE ALLEN YEHUDA Dustin [facility] RAD ROUTINE [id number] 11/26/2012 12:38:00 11/26/2012 23:59:59 CLS Outpatient ELKE ALLEN YEHUDA Dustin [facility] OSTEOPOROSIS [id number] 04/11/2015 12:16:00 Document Registration [id number] 05/18/2014 09:49:00 Document Registration [id number] 07/16/2012 13:05:00 Document Registration [id number] 06/17/2012 09:21:00 Document Registration [id number] 02/08/2012 08:19:00 Document Registration [id number] 11/26/2011 12:38:00 Document Registration [id number] 09/26/2011 10:15:00 Document Registration [id number] 06/15/2011 09:34:00 Document Registration [id number] 05/21/2011 13:55:00 Document Registration [id number] 02/26/2011 23:50:00 Document Registration [id number] 01/01/2011 13:45:00 Document Registration [id number] 10/04/2010 12:28:00 Document Registration [id number] 10/04/2010 07:30:00 Document Registration [id number] 06/05/2010 08:38:00 Document Registration [id number] 02/02/2015 05:16:51 ACT Document Registration [id number] 04/29/2018 13:18:36 04/29/2018 23:59:59 DIS Outpatient Thalia Bateman [facility]
[2018-10-12] MEDS ORDERED: NS IV 500 ML 500 ML IV ONE ×2 (07:54→09:47)
--- NOTE | 2018-10-12 08:08 | ED Fall/Injury ---
General Stated Complaint: FALL - RIGHT SIDE / BACK PAIN Source: patient Exam Limitations: no limitations History of Present Illness Date Seen by Provider: October 12, 2018 Time Seen by Provider: 07:50 Initial Comments Here with report of right rib and side pain after falling this morning. Apparently she woke up and was doing okay then decided to walk him to sit in a chair. While she was walking, she got dizzy and grabbed onto her temperature for support and then ended up falling on the chair and then pulling on top of her. Apparently this is a wooden chair with arms and she hit her right ribs on this area. She was on the floor for quite a while but was finally able to get up. She has fairly significant pain to the right side of the chest wall and posterior. Pain is occurring along the lower rib margin. Has history of lumbar spinal fusion and story of previous neck bulging disc. She denies neck pain. She denies hitting her head or loss of consciousness. Denies other injury except for chest and torso. Occurred: this morning (approximately one to 2 hours prior to arrival) Injuries/Pain Location: chest, back Context: lightheaded, lost balance Loss of Consciousness: no loss of consciousness Modifying Factors: Improves With Immobilization; Worse With Movement Associated Symptoms (Fall): No Abdominal Pain; Chest Pain; No Confusion; Muscle Spasms; No Neck Pain, No Shortness of Air, No Slurred Speech Allergies and Home Medications Allergies Coded Allergies: Penicillins (Verified Allergy, Severe, TACHYCARDIA, COULDN'T BREATHE, 05/20/16) Sulfa (Sulfonamide Antibiotics) (Verified Allergy, Severe, TACHYCARDIA, COULDN'T BREATHE, 05/20/16) Uncoded Allergies: [id number] (SULFA (SULFONAMIDE ANTIBIOTICS)) (Allergy, Mild, RASH, 05/20/16) heart palpatations Home Medications Amlodipine Besylate 5 Mg Tablet, 5 MG PO DAILY, (Reported) Beta-Carotene(A) W-C & E/Min 1 Each Tablet, 1 TAB PO DAILY, (Reported) Calcium Carbonate/Vitamin D3 1 Each Tablet, 1 TAB PO DAILY, (Reported) Cefdinir 300 Mg Capsule, 300 MG PO BID Prescribed by: BASHIR STACK on 05/24/16 0651 Cholecalciferol (Vitamin D3) 400 Unit Capsule, 400 UNIT PO DAILY, (Reported) Cyanocobalamin (Vitamin B-12) 500 Mcg Tablet, 500 MCG PO DAILY, (Reported) Cyclobenzaprine HCl 5 Mg Tablet, 5 MG PO TID, (Reported) Gabapentin 100 Mg Capsule, 100 MG PO Q8H, (Reported) Guaifenesin/Dextromethorphan 5 Ml Syrup, 5 ML PO Q4H PRN for COUGH Prescribed by: BASHIR STACK on 05/24/16 0651 Hydrocodone Bit/Acetaminophen 1 Each Tablet, 1 TAB PO DAILY PRN for PAIN, (Reported) Levothyroxine Sodium 88 Mcg Tablet, 88 MCG PO DAILY, (Reported) Lutein 20 Mg Tablet, 20 MG PO DAILY, (Reported) Multivitamin with Minerals 1 Each Tablet, 1 TAB PO DAILY, (Reported) Omeprazole 20 Mg Capsule.dr, 20 MG PO DAILY, (Reported) Tramadol HCl 50 Mg Tablet, 50-100 MG PO Q6H PRN for PAIN, (Reported) Patient Home Medication List Home Medication List Reviewed: Yes Review of Systems Review of Systems Constitutional: see HPI; No chills, No fever Eyes: No Symptoms Reported Ears, Nose, Mouth, Throat: no symptoms reported Respiratory: No cough, No short of breath Cardiovascular: see HPI; No edema, No palpitations Gastrointestinal: see HPI; No nausea, No vomiting Genitourinary: incontinence, other (does have to self catheter due to incontin ence and history of urinary tract infections.) Musculoskeletal: back pain, joint pain, muscle pain Skin: No change in color, No lesions Psychiatric/Neurological: See HPI; Denies Headache, Denies Seizure Past Nwjjlla-Glezsl-Ccwtaw Hx Past Med/Social Hx: Reviewed Nursing Past Med/Soc Hx Patient Social History Alcohol Use: Denies Use Recreational Drug Use: No Smoking Status: Never a Smoker Recent Foreign Travel: No Contact w/Someone Who Travel: No Recent Hopitalizations: No Immunizations Up To Date Tetanus Booster (TDap): Unknown Date of Pneumonia Vaccine: Jan 13, 2014 Date of Influenza Vaccine: Feb 18, 2016 Seasonal Allergies Seasonal Allergies: No Past Medical History Surgeries: Yes (TONSILLECTOMY,GASTRIC BYPASS,BILE DUCT BYPASS,BILAT KNEE REPLACEMENT) Abdominal, Joint Replacement, Orthopedic, Tonsillectomy Respiratory: No Currently Using CPAP: No Currently Using BIPAP: No Cardiac: Yes Hypertension Neurological: Yes Reproductive Disorders: Yes Sexually Transmitted Disease: No Bladder Infection Gastrointestinal: Yes (RECURRENT ABD PAINX20 YEARS) Musculoskeletal: Yes (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 Physical Exam Vital Signs Vital Signs - First Documented 10/12/18 07:40 Temp 96.9 Pulse 78 Resp 12 B/P (MAP) 123/86 (98) Pulse Ox 97 O2 Delivery Room Air Capillary Refill : Height, Weight, BMI Height: 5'5.00" Weight: 135lbs. 0oz. [id number]; 25.8 BMI Method:Stated General Appearance: WD/WN, mild distress HEENT: PERRL/EOMI, pharynx normal Neck: non-tender, full range of motion, supple, normal inspection Cardiovascular: regular rate, rhythm, no murmur Respiratory: lungs clear, normal breath sounds, other (tender along the right lateral posterior rib margin inferior aspect.) Gastrointestinal: non tender, soft Back: no vertebral tenderness, CVA tenderness (R), decreased range of motion Extremities: normal range of motion, non-tender, normal inspection Neurologic/Psychiatric: alert, oriented x 3 Skin: normal color, warm/dry; No ecchymosis [place] Coma Score Best Eye Response: (4) Open Spontaneously Best Verbal Response: (5) Oriented Best Motor Response: (6) Obeys Commands Progress/Results/Core Measures Results/Orders Lab Results Laboratory Tests Test 10/12/18 08:00 10/12/18 09:10 Range/Units White Blood Count 5.3 4.3-11.0 10^3/uL Red Blood Count 3.84 L 4.35-5.85 10^6/uL Hemoglobin 10.5 L 11.5-16.0 G/DL Hematocrit 32 L 35-52 % Mean Corpuscular Volume 84 80-99 FL Mean Corpuscular Hemoglobin 27 25-34 PG Mean Corpuscular Hemoglobin Concent 33 32-36 G/DL Red Cell Distribution Width 15.2 H 10.0-14.5 % Platelet Count 184 130-400 10^3/uL Mean Platelet Volume 11.3 H 7.4-10.4 FL Neutrophils (%) (Auto) 57 42-75 % Lymphocytes (%) (Auto) 28 12-44 % Monocytes (%) (Auto) 11 0-12 % Eosinophils (%) (Auto) 3 0-10 % Basophils (%) (Auto) 1 0-10 % Neutrophils # (Auto) 3.0 1.8-7.8 X 10^3 Lymphocytes # (Auto) 1.5 1.0-4.0 X 10^3 Monocytes # (Auto) 0.6 0.0-1.0 X 10^3 Eosinophils # (Auto) 0.2 0.0-0.3 10^3/uL Basophils # (Auto) 0.0 0.0-0.1 10^3/uL Sodium Level 137 135-145 MMOL/L Potassium Level 4.4 3.6-5.0 MMOL/L Chloride Level 101 98-107 MMOL/L Carbon Dioxide Level 27 21-32 MMOL/L Anion Gap 9 5-14 MMOL/L Blood Urea Nitrogen 33 H 7-18 MG/DL Creatinine 1.06 0.60-1.30 MG/DL Estimat Glomerular Filtration Rate 49 BUN/Creatinine Ratio 31 Glucose Level 86 70-105 MG/DL Calcium Level 9.6 8.5-10.1 MG/DL Corrected Calcium 9.5 8.5-10.1 MG/DL Total Bilirubin 0.3 0.1-1.0 MG/DL Aspartate Amino Transf (AST/SGOT) 22 5-34 U/L Alanine Aminotransferase (ALT/SGPT) 14 0-55 U/L Alkaline Phosphatase 62 40-136 U/L Total Protein 7.4 6.4-8.2 GM/DL Albumin 4.1 3.2-4.5 GM/DL Urine Color YELLOW Urine Clarity CLEAR Urine pH 7 5-9 Urine Specific [place] 1.010 L 1.016-1.022 Urine Protein NEGATIVE NEGATIVE Urine Glucose (UA) NEGATIVE NEGATIVE Urine Ketones NEGATIVE NEGATIVE Urine Nitrite NEGATIVE NEGATIVE Urine Bilirubin NEGATIVE NEGATIVE Urine Urobilinogen NORMAL NORMAL MG/DL Urine Leukocyte Esterase NEGATIVE NEGATIVE Urine RBC (Auto) NEGATIVE NEGATIVE Urine RBC NONE /HPF Urine WBC RARE /HPF Urine Squamous Epithelial Cells RARE /HPF Urine Crystals NONE /LPF Urine Bacteria MODERATE H /HPF Urine Casts NONE /LPF Urine Mucus NEGATIVE /LPF Urine Culture Indicated YES My Orders Orders - LAYTON CUMMINS MD Cbc With Automated Diff (10/12/18 07:54) Comprehensive Metabolic Panel (10/12/18 07:54) Ua Culture If Indicated (10/12/18 07:54) Ed Iv/Invasive Line Start (10/12/18 07:54) Straight Cath For Spec.-Adult (10/12/18 07:54) Ns Iv 500 Ml (Sodium Chloride 0.9%) (10/12/18 07:54) Ct Chest/Abdomen/Pelvis W (10/12/18 08:32) Iohexol Injection (Omnipaque 350 Mg/Ml 1 (10/12/18 09:00) Sodium Chloride Flush (Catheter Flush Sy (10/12/18 09:00) Ns (Ivpb) (Sodium Chloride 0.9% Ivpb Bag (10/12/18 09:00) Urine Culture (10/12/18 09:10) Ns Iv 500 Ml (Sodium Chloride 0.9%) (10/12/18 09:47) Medications Given in ED Current Medications Medications Dose Ordered Sig/[place] Route Start Time Stop Time Status Last Admin Dose Admin Iohexol 100 ml ONCE ONCE IV 10/12/18 09:00 10/12/18 09:01 DC 10/12/18 09:36 74 ML Sodium Chloride 10 ml NEEDED PRN IV 10/12/18 09:00 10/12/18 09:36 10 ML Sodium Chloride 500 ml @ 0 mls/hr Q0M ONCE IV 10/12/18 07:54 10/12/18 07:57 DC 10/12/18 08:09 500 MLS/HR Sodium Chloride 500 ml @ 0 mls/hr Q0M ONCE IV 10/12/18 09:47 10/12/18 09:48 DC 10/12/18 09:51 500 MLS/HR Vital Signs/I&O 10/12/18 07:40 Temp 96.9 Pulse 78 Resp 12 B/P (MAP) 123/86 (98) Pulse Ox 97 O2 Delivery Room Air Progress Progress Note : Progress Note Seen and evaluated. Given the type of fall and location of injury, concern for rib fractures and possible liver injury. IV, labs, normal saline 500 mL bolus a nd CT scans ordered. We will evaluate creatinine and then use contrast if possible depending on kidney function. She has declined pain medicine currently. She is unable to lay on the bed but was able to sit in the wheelchair. We will get straight catheter UA to evaluate for urinary tract infection as she has had this in the past and she is becoming more frequently dizzy/lightheaded. Monitor patient. 1048: Multiple rib fractures noted. I discussed the case with Dr. Navarro. Given that she has 4 rib fractures, her risk of mortality and morbidity is much higher especially in her age group. Patient to be admitted for continued evaluation and possible epidural as needed. We will continue Ultram and hydrocodone when necessary as well as bowel regimen. She does have a UA that does show moderate bacteria but no whites and her white blood cell count is not elevated. At this point we will monitor her and wait for cultures. I did discuss the case with Dr. Cowart at 1052 and he accepts patient in consult. Consult place with Dr. Azul at 1056. We will continue incentive spirometry and RT MAT protocol. Admit, inpatient status. Patient and family agree with plan. Diagnostic Imaging Diagonstic Imaging: CT Plain Films/CT/US/NM/MRI: chest, abdomen, pelvis Comments NAME: CHERI [facility]XENA [facility] REC#: [id number] PT STATUS: REG ER : 1930 PHYSICIAN: LAYTON CUMMINS MD ADMIT DATE: 10/12/18/ER Signed Date of Exam: 10/12/18 CT CHEST/ABDOMEN/PELVIS W PROCEDURE: CT chest, abdomen, and pelvis with contrast. TECHNIQUE: Multiple contiguous axial images were obtained through the chest, abdomen, and pelvis after the administration of intravenous contrast. Auto Exposure Controls were utilized during the CT exam to meet ALARA standards for radiation dose reduction. INDICATION: Fall with chest pain and lower extremity swelling in patient with previous gastric surgery and umbilical hernia. Comparison is made to previous study of 07/05/2009. CT chest: There are calcified granulomas seen in both lungs. There has been an increase in interstitial lung disease in the visualized lung bases likely related to pneumonitis. There is no evidence of focal consolidation or significant noncalcified mass. There is no evidence of significant pleural or pericardial fluid. There is no pathologic adenopathy identified. There is aortic atherosclerotic calcification. Great vessels in the mediastinum are otherwise unremarkable. There are nondisplaced fractures involving right 8th, 9th, 11th and 12th ribs. There is no evidence of pneumothorax or significant pleural reaction. IMPRESSION: Multiple right rib fractures without displacement or other underlying acute thoracic abnormality. 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 CT abdomen and pelvis: There is persistent pneumobilia. This may be related to previous cholecystectomy and gastric surgery. No focal hepatic or splenic lesion is identified. Pancreas, adrenal glands and kidneys are otherwise stable and unremarkable. There is bilateral renal excretion of contrast. There is moderate amount stool throughout colon without evidence of obstruction. Partially pacified urinary bladder is unremarkable. There is no evidence of localized inflammation. There is extensive lumbar spondylosis with posterior lumbar spinal surgery. Impression: Probable constipation and persistent pneumobilia. No definite new abnormality is identified. Dictated by: Dictated on workstation # [id number] Dict: 10/12/18 0939 Trans: 10/12/18 0952 Interpreted by: JUNIOR CRISTOBAL MD Electronically signed by: JUNIOR CRISTOBAL MD 10/12/18 0952 Departure Communication (Admissions) Time/Spoke to Admitting Phy: 10:48 Time/Spoke to Consulting Phy: 10:52 Impression Primary Impression: Multiple fractures of ribs, right side, initial encounter for closed fracture Disposition: ADMITTED INPATIENT Condition: Stable Admissions Decision to Admit Reason: Admit from ER (Trauma) Decision to Admit/Date: October 12, 2018 Time/Decision to Admit Time: 10:48 Departure-Patient Inst. Referrals: YEHUDA BEDOYA DO (PCP/Family) Primary Care Physician LAYTON CUMMINS MD October 12, 2018 08:08
[2018-10-12 08:15] LABS: BASOPHILS % (AUTO) 1 % (0-10); EOSINOPHILS # (AUTO) 0.2 10^3/uL (0.0-0.3); EOSINOPHILS % (AUTO) 3 % (0-10); HEMATOCRIT 32 % (35-52); HEMOGLOBIN 10.5 G/DL (11.5-16.0); LYMPHOCYTES # (AUTO) 1.5 X 10^3 (1.0-4.0); LYMPHOCYTES % (AUTO) 28 % (12-44); MEAN CORPUSCULAR HEMOGLOBIN 27 PG (25-34); MEAN CORPUSCULAR HGB CONC 33 G/DL (32-36); MEAN CORPUSCULAR VOLUME 84 FL (80-99); MEAN PLATELET VOLUME 11.3 FL (7.4-10.4); MONOCYTES # (AUTO) 0.6 X 10^3 (0.0-1.0); MONOCYTES % (AUTO) 11 % (0-12); NEUTROPHILS % (AUTO) 57 % (42-75); PLATELET COUNT 184 10^3/uL (130-400); RED CELL DISTRIBUTION WIDTH 15.2 % (10.0-14.5); WHITE BLOOD COUNT 5.3 10^3/uL (4.3-11.0)
[2018-10-12 08:30] LABS: ALBUMIN 4.1 GM/DL (3.2-4.5); BILIRUBIN,TOTAL 0.3 MG/DL (0.1-1.0); CALCIUM 9.6 MG/DL (8.5-10.1); CREATININE SERUM 1.06 MG/DL (0.60-1.30); POTASSIUM 4.4 MMOL/L (3.6-5.0); TOTAL PROTEIN 7.4 GM/DL (6.4-8.2)
[2018-10-12] MEDS ORDERED: NS 100 ML (IVPB) BAG IV ONE (09:00)
[2018-10-12] MEDS ORDERED: IOHEXOL 350 MG/ML 100 ML (OMNIPAQUE 350) VIAL IV ONE (09:00)
[2018-10-12] MEDS ORDERED: CATHETER FLUSH 10 ML SYR IV PRN (09:00)
[2018-10-12 09:16] LABS: BILIRUBIN,URINE NEGATIVE (NEGATIVE); CLARITY,URINE CLEAR; COLOR,URINE YELLOW; GLUCOSE, URINE (UA) NEGATIVE (NEGATIVE); KETONES,URINE NEGATIVE (NEGATIVE); LEUKOCYTE ESTERASE ,URINE NEGATIVE (NEGATIVE); NITRITE,URINE NEGATIVE (NEGATIVE); PH,URINE 7 (5-9); PROTEIN,URINE NEGATIVE (NEGATIVE); UROBILINOGEN,URINE NORMAL (NORMAL)
[2018-10-12 09:25] LABS: BACTERIA,URINE MODERATE /HPF; SQUAMOUS EPITHELIAL CELL,UR RARE /HPF; WBC,URINE RARE /HPF
--- NOTE | 2018-10-12 09:48 | Diagnostic Imaging Report ---
PROCEDURE: CT chest, abdomen, and pelvis with contrast. TECHNIQUE: Multiple contiguous axial images were obtained through the chest, abdomen, and pelvis after the administration of intravenous contrast. Auto Exposure Controls were utilized during the CT exam to meet ALARA standards for radiation dose reduction. INDICATION: Fall with chest pain and lower extremity swelling in patient with previous gastric surgery and umbilical hernia. Comparison is made to previous study of 07/05/2009. CT chest: There are calcified granulomas seen in both lungs. There has been an increase in interstitial lung disease in the visualized lung bases likely related to pneumonitis. There is no evidence of focal consolidation or significant noncalcified mass. There is no evidence of significant pleural or pericardial fluid. There is no pathologic adenopathy identified. There is aortic atherosclerotic calcification. Great vessels in the mediastinum are otherwise unremarkable. There are nondisplaced fractures involving right 8th, 9th, 11th and 12th ribs. There is no evidence of pneumothorax or significant pleural reaction. IMPRESSION: Multiple right rib fractures without displacement or other underlying acute thoracic abnormality. 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 CT abdomen and pelvis: There is persistent pneumobilia. This may be related to previous cholecystectomy and gastric surgery. No focal hepatic or splenic lesion is identified. Pancreas, adrenal glands and kidneys are otherwise stable and unremarkable. There is bilateral renal excretion of contrast. There is moderate amount stool throughout colon without evidence of obstruction. Partially pacified urinary bladder is unremarkable. There is no evidence of localized inflammation. There is extensive lumbar spondylosis with posterior lumbar spinal surgery. Impression: Probable constipation and persistent pneumobilia. No definite new abnormality is identified. Dictated by: Dictated on workstation # [id number]
[2018-10-12] MEDS ORDERED: MECL-106 PO (10:25)
[2018-10-12] MEDS ORDERED: GABA-486 PO (10:25)
[2018-10-12] MEDS ORDERED: MENT71OI TP (10:25)
--- OUTSIDE RECORDS SUMMARY | 2018-10-12 11:11 | XMS REPORT | Continuity of Care Document ---
Author Organization Unknown Address Unknown Allergies Active Description Code Type Severity Reaction Onset Reported/Identified Relationship to Patient Clinical Status Yes [id number] (SULFA (SULFONAMIDE ANTIBIOTICS)) [id number] (SULFA (SULFONAMIDE ANTIBIOTICS)) Mild N/A 07/04/2009 Yes Penicillins [id number] Drug Allergy Severe TACHYCARDIA, [place] 05/20/2016 Yes Sulfa (Sulfonamide Antibiotics) [id number] Drug Allergy Severe TACHYCARDIA, [place] 05/20/2016 Yes [id number] (SULFA (SULFONAMIDE ANTIBIOTICS)) [id number] (SULFA (SULFONAMIDE ANTIBIOTICS)) Mild RASH 05/20/2016 Medications [...] FOR INFLUENZA A AND B ANTIGENS BY [facility] Complete blood count (CBC) with [...] OF GROWTH Isolated NRG Bacterial blood culture [id number] NRG Bacterial blood culture - 05/20/16 14:39 [...] culture SEE COMMEN NRG COLONY COUNT . NR FTX;REPORTABLE SUSCEPTIBILITY REPORTED 02-12-2018, 09 [facility] FREE TEXT ENTRY 2 ESBL PRODUCING ORGANISM [facility] RML Sensitivity Panel - 02/10/18 01:40 Gentamicin [...] and clavulanate potassium susc DAVID R NRG Complete blood count (CBC) with automated white blood cell (WBC) differential - 10/12/18 08:00 Blood leukocytes automated count (number/volume) 5.3 10*3/uL 4.3-11.0 Blood erythrocytes automated count (number/volume) 3.84 10*6/uL 4.35-5.85 Venous blood hemoglobin measurement (mass/volume) 10.5 g/dL 11.5-16.0 Blood hematocrit (volume fraction) 32 % 35-52 Automated erythrocyte mean corpuscular volume 84 [foz_us] 80-99 Automated erythrocyte mean corpuscular hemoglobin (mass per erythrocyte) 27 pg 25-34 Automated erythrocyte mean corpuscular hemoglobin concentration measurement (mass/volume) 33 g/dL 32-36 Automated erythrocyte distribution width ratio 15.2 % 10.0- 14.5 Automated blood platelet count (count/volume) 184 10*3/uL 130-400 Automated blood platelet mean volume measurement 11.3 [foz_us] 7.4-10.4 Automated blood neutrophils/100 leukocytes 57 % 42-75 Automated blood lymphocytes/100 leukocytes 28 % 12-44 Blood monocytes/100 leukocytes 11 % 0-12 Automated blood eosinophils/100 leukocytes 3 % 0-10 Automated blood basophils/100 leukocytes 1 % 0-10 Blood neutrophils automated count (number/volume) 3.0 10*3 1.8-7.8 Blood lymphocytes automated count (number/volume) 1.5 10*3 1.0-4.0 Blood monocytes automated count (number/volume) 0.6 10*3 0.0- 1.0 Automated eosinophil count 0.2 10*3/uL 0.0-0.3 Automated blood basophil count (count/volume) 0.0 10*3/uL 0.0-0.1 Comprehensive metabolic panel - 10/12/18 08:00 Serum or plasma sodium measurement (moles/volume) 137 mmol/L 135-145 Serum or plasma potassium measurement (moles/volume) 4.4 mmol/L 3.6-5.0 Serum or plasma chloride measurement (moles/volume) 101 mmol/L 98-107 Carbon dioxide 27 mmol/L 21-32 Serum or plasma anion gap determination (moles/volume) 9 mmol/L 5-14 Serum or plasma urea nitrogen measurement (mass/volume) 33 mg/dL 7-18 Serum or plasma creatinine measurement (mass/volume) 1.06 mg/dL 0.60-1.30 Serum or plasma urea nitrogen/creatinine mass ratio 31 NRG Serum or plasma creatinine measurement with calculation of estimated glomerular filtration rate 49 NRG Serum or plasma glucose measurement (mass/volume) 86 mg/dL 70-105 Serum or plasma calcium measurement (mass/volume) 9.6 mg/dL 8.5-10.1 Serum or plasma total bilirubin measurement (mass/volume) 0.3 mg/dL 0.1-1.0 Serum or plasma alkaline phosphatase measurement (enzymatic activity/volume) 62 U/L 40-136 Serum or plasma aspartate aminotransferase measurement (enzymatic activity/volume) 22 U/L 5-34 Serum or plasma alanine aminotransferase measurement (enzymatic activity/volume) 14 U/L 0-55 Serum or plasma protein measurement (mass/volume) 7.4 g/dL 6.4-8.2 Serum or plasma albumin measurement (mass/volume) 4.1 g/dL 3.2-4.5 CALCIUM CORRECTED 9.5 mg/dL 8.5-10.1 Complete urinalysis with reflex to culture - 10/12/18 09:10 Urine color determination YELLOW NRG Urine clarity determination CLEAR NRG Urine pH measurement by test strip 7 5-9 Specific gravity of urine by test strip 1.010 1.016-1.022 Urine protein assay by test strip, semi-quantitative NEGATIVE NEGATIVE Urine glucose detection by automated test strip NEGATIVE NEGATIVE Erythrocytes detection in urine sediment by light microscopy NEGATIVE NEGATIVE Urine ketones detection by automated test strip NEGATIVE NEGATIVE Urine nitrite detection by test strip NEGATIVE NEGATIVE Urine total bilirubin detection by test strip NEGATIVE NEGATIVE Urine urobilinogen measurement by automated test strip (mass/volume) NORMAL NORMAL Urine leukocyte esterase detection by dipstick NEGATIVE NEGATIVE Automated urine sediment erythrocyte count by microscopy (number/high power field) NONE NRG Automated urine sediment leukocyte count by microscopy (number/high power field) RARE NRG Bacteria detection in urine sediment by light microscopy MODERATE NRG Squamous epithelial cells detection in urine sediment by light microscopy RARE NRG Crystals detection in urine sediment by light microscopy NONE NRG Casts detection in urine sediment by light microscopy NONE NRG Mucus detection in urine sediment by light microscopy NEGATIVE NRG Complete urinalysis with reflex to culture YES NRG Encounters ACCT No. Visit Date/Time Discharge Status Pt. Type Provider Facility Loc./Unit Complaint [id number] 07/10/2018 09:40:00 07/10/2018 23:59:59 CLS Outpatient ELKE ALLENYEHUDA Dustin [facility] RAD SCREEN [id number] 02/10/2018 00:32:00 02/10/2018 02:27:00 DIS Emergency LISA EDGE MD [facility] ER R SIDE PAIN [id number] 07/08/2017 11:01:00 07/08/2017 23:59:59 CLS Outpatient ELKE ALLEN YEHUDA Dustin [facility] RAD SCREEN [id number] 05/23/2017 09:37:00 05/23/2017 23:59:59 CLS Outpatient ELKE ALLENYEHUDA Dustin [facility] RAD M81.0 [id number] 05/03/2017 13:13:00 05/03/2017 23:59:59 CLS Preadmit ELKE ALLEN YEHUDA Dustin [facility] RAD M81.0 [id number] 07/02/2016 09:31:00 07/02/2016 23:59:59 CLS Outpatient ELKE ALLEN YEHUDA Dustin [facility] RAD SCREENING [id number] 05/20/2016 16:26:00 05/24/2016 11:45:00 DIS Inpatient STACK BASHIR ALLEN [facility] 4TH PNEUMONIA RRL, RT FACIAL PAIN [id number] 04/04/2016 13:03:00 04/04/2016 23:59:59 CLS Outpatient YEHUDA BEDOYA DO [facility] M81.0 [id number] 07/06/2015 13:01:00 07/06/2015 23:59:59 CLS Outpatient YEHUDA BEDOYA DO [facility] RAD ABNORMAL MAMMO [id number] 06/24/2015 10:34:00 06/24/2015 23:59:59 CLS Outpatient YEHUDA BEDOYA DO [facility] RAD SCREENING [id number] 02/01/2015 13:07:00 02/01/2015 23:59:59 CLS Outpatient YEHUDA BEDOYA DO [facility] OSTEOPOROSIS [id number] 06/21/2014 10:53:00 06/21/2014 23:59:59 CLS Outpatient YEHUDA BEDOYA DO [facility] RAD SCREENING [id number] 01/15/2014 12:37:00 01/15/2014 23:59:59 CLS Outpatient YEHUDA BEDOYA DO [facility] OSTEOPOROSIS [id number] 09/21/2013 10:36:00 09/21/2013 23:59:59 CLS Outpatient YEHUDA BEDOYA DO [facility] RAD DJD,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 [id number] 06/18/2013 09:43:00 06/18/2013 23:59:59 CLS Outpatient YEHUDA BEDOYA DO [facility] RAD ROUTINE [id number] 11/26/2012 12:38:00 11/26/2012 23:59:59 CLS Outpatient YEHUDA BEDOYA DO [facility] OSTEOPOROSIS [id number] 10/12/2018 08:16:00 Document Registration [id number] 04/11/2015 12:16:00 Document Registration [id number] 05/18/2014 09:49:00 Document Registration [id number] 07/16/2012 13:05:00 Document Registration [id number] 06/17/2012 09:21:00 Document Registration [id number] 02/08/2012 08:19:00 Document Registration [id number] 11/26/2011 12:38:00 Document Registration [id number] 09/26/2011 10:15:00 Document Registration [id number] 06/15/2011 09:34:00 Document Registration [id number] 05/21/2011 13:55:00 Document Registration [id number] 02/26/2011 23:50:00 Document Registration [id number] 01/01/2011 13:45:00 Document Registration [id number] 10/04/2010 12:28:00 Document Registration [id number] 10/04/2010 07:30:00 Document Registration [id number] 06/05/2010 08:38:00 Document Registration [id number] 02/02/2015 05:16:51 ACT Document Registration [id number] 04/29/2018 13:18:36 04/29/2018 23:59:59 DIS Outpatient Thalia Bateman [facility]
--- NOTE | 2018-10-12 11:30 | NUR ---
see med list
[2018-10-12 11:45] VITALS: BP 174/74
[2018-10-12 12:00] VITALS: BP 174/74
--- NOTE | 2018-10-12 12:40 | History & Physical-Surgical ---
History of Present Illness History of Present Illness Reason for visit/HPI chief complaint fall with rib fractures Patient is an 88-year-old female who earlier today was trying to get to a chair when she knocked it over and fell striking the right chest on chair. Patient states that she likely follow-up phone which she was able to call for help. Patient states that she has a constant pain that is 4 out of 10 along the right chest wall if she moves certain ways it deftly becomes a 10 out of 10 she states. Patient states that she did not hit her head. She had no loss of consciousness. Patient states his prior she had a little bit dizzy but she states usually this is a normal occurrence for her and she knows where things are just that she felt a chair over which then mated to where she couldn't help herself. She has no other complaints at this time she denies any nausea vomiting fever sweats chills shortness of breath or chest pain. Her CT of the chest abdomen and pelvis demonstrated rib fractures right side 8, 9, 11 and 12 nondisplaced, changes of constipation and persistent chronic pneumobilia Date of Admission October 12, 2018 at 10:46 Date Seen by a Provider: October 12, 2018 Time Seen by a Provider: 11:50 I consulted on this patient on 10/12/18 11:50 Attending Physician Bernie Navarro DO Admitting Physician Dakota Poon DO Consult Allergies and Home Medications Allergies Coded Allergies: Penicillins (Verified Allergy, Severe, TACHYCARDIA, COULDN'T BREATHE, 05/20/16) Sulfa (Sulfonamide Antibiotics) (Verified Allergy, Severe, TACHYCARDIA, COULDN'T BREATHE, 05/20/16) Uncoded Allergies: [id number] (SULFA (SULFONAMIDE ANTIBIOTICS)) (Allergy, Mild, RASH, 05/20/16) heart palpatations Home Medications Amlodipine Besylate 5 Mg Tablet, 5 MG PO DAILY, (Reported) Beta-Carotene(A) W-C & E/Min 1 Each Tablet, 1 TAB PO DAILY, (Reported) Calcium Carbonate/Vitamin D3 1 Each Tablet, 1 TAB PO DAILY, (Reported) Cefdinir 300 Mg Capsule, 300 MG PO BID Prescribed by: BASHIR STACK on 05/24/16 0616 Cholecalciferol (Vitamin D3) 400 Unit Capsule, 400 UNIT PO DAILY, (Reported) Cyanocobalamin (Vitamin B-12) 500 Mcg Tablet, 500 MCG PO DAILY, (Reported) Cyclobenzaprine HCl 5 Mg Tablet, 5 MG PO TID, (Reported) Gabapentin 100 Mg Capsule, 100 MG PO Q8H, (Reported) Guaifenesin/Dextromethorphan 5 Ml Syrup, 5 ML PO Q4H PRN for COUGH Prescribed by: BASHIR STACK on 05/24/16 0651 Hydrocodone Bit/Acetaminophen 1 Each Tablet, 1 TAB PO DAILY PRN for PAIN, (Reported) Levothyroxine Sodium 88 Mcg Tablet, 88 MCG PO DAILY, (Reported) Lutein 20 Mg Tablet, 20 MG PO DAILY, (Reported) Multivitamin with Minerals 1 Each Tablet, 1 TAB PO DAILY, (Reported) Omeprazole 20 Mg Capsule.dr, 20 MG PO DAILY, (Reported) Tramadol HCl 50 Mg Tablet, 50-100 MG PO Q6H PRN for PAIN, (Reported) Patient Home Medication List Home Medication List Reviewed: Yes Past Esgvjdr-Abfzug-Jfvlmc Hx Patient Social History Alcohol Use: Denies Use Recreational Drug Use: No Smoking Status: Never a Smoker 2nd Hand Smoke Exposure: No Recent Foreign Travel: No Contact w/Someone Who Travel: No Recent Infectious Disease Expo: No Recent Hopitalizations: No Immunizations Up To Date Tetanus Booster (TDap): Unknown Date of Pneumonia Vaccine: Jan 13, 2014 Date of Influenza Vaccine: Feb 18, 2016 Seasonal Allergies Seasonal Allergies: No Surgeries History of Surgeries: Yes (TONSILLECTOMY,GASTRIC BYPASS,BILE DUCT BYPASS,BILAT KNEE REPLACEMENT) Surgeries: Abdominal, Joint Replacement, Orthopedic, Tonsillectomy Respiratory History of Respiratory Disorde: No Cardiovascular History of Cardiac Disorders: Yes Cardiac Disorders: Hypertension Neurological History of Neurological Disord: Yes Reproductive System Hx Reproductive Disorders: Yes Sexually Transmitted Disease: No Genitourinary Genitourinary Disorders: Bladder Infection Gastrointestinal History of Gastrointestinal Di: Yes (RECURRENT ABD PAINX20 YEARS) Musculoskeletal History of Musculoskeletal Dis: Yes (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 Review of Systems Constitutional: see HPI, dizziness EENTM: no symptoms reported Respiratory: see HPI Cardiovascular: no symptoms reported Gastrointestinal: no symptoms reported Genitourinary: no symptoms reported Musculoskeletal: see HPI Skin: no symptoms reported Psychiatric/Neurological: No Symptoms Reported Physical Exam Vital Signs Vital Signs - First Documented 10/12/18 07:40 Temp 96.9 Pulse 78 Resp 12 B/P (MAP) 123/86 (98) Pulse Ox 97 O2 Delivery Room Air Capillary Refill : Less Than 3 Seconds Height, Weight, BMI Height: 5'5.00" Weight: 134lbs. 0oz. 60.311783xe; 25.8 BMI Method:Stated General Appearance: No Apparent Distress HEENT: PERRL/EOMI, Normal ENT Inspection, Pharynx Normal Neck: Normal Inspection, Non Tender Respiratory: No Chest Non Tender; No Respiratory Distress, Other (tenderness along the right lower chest wall around to right CVA tenderness) Cardiovascular: Regular Rate, Rhythm, Normal Peripheral Pulses Gastrointestinal: Normal Bowel Sounds, Non Tender, Soft Rectal: Deferred Back: Normal Inspection, CVA Tenderness (R) Extremity: Normal Inspection, Non Tender, No Calf Tenderness Neurologic/Psychiatric: Alert, Oriented x3, No Motor/Sensory Deficits, Normal Mood/Affect, finance lead II-XII Norm as Tested Skin: Normal Color, Warm/Dry Lymphatic: No Adenopathy Data Review Labs Laboratory Tests 10/12/18 08:00: White Blood Count 5.3, Red Blood Count 3.84L, Hemoglobin 10.5L, Hematocrit 32L, Mean Corpuscular Volume 84, Mean Corpuscular Hemoglobin 27, Mean Corpuscular Hemoglobin Concent 33, Red Cell Distribution Width 15.2H, Platelet Count 184, Mean Platelet Volume 11.3H, Neutrophils (%) (Auto) 57, Lymphocytes (%) (Auto) 2 8, Monocytes (%) (Auto) 11, Eosinophils (%) (Auto) 3, Basophils (%) (Auto) 1, Neutrophils # (Auto) 3.0, Lymphocytes # (Auto) 1.5, Monocytes # (Auto) 0.6, Eosinophils # (Auto) 0.2, Basophils # (Auto) 0.0, Sodium Level 137, Potassium Level 4.4, Chloride Level 101, Carbon Dioxide Level 27, Anion Gap 9, Blood Urea Nitrogen 33H, Creatinine 1.06, Estimat Glomerular Filtration Rate 49, BUN/Creatinine Ratio 31, Glucose Level 86, Calcium Level 9.6, Corrected Calcium 9.5, Total Bilirubin 0.3, Aspartate Amino Transf (AST/SGOT) 22, Alanine Aminotransferase (ALT/SGPT) 14, Alkaline Phosphatase 62, Total Protein 7.4, Albumin 4.1 10/12/18 09:10: Urine Color YELLOW, Urine Clarity CLEAR, Urine pH 7, Urine Specific [place] 1 .010L, Urine Protein NEGATIVE, Urine Glucose (UA) NEGATIVE, Urine Ketones NEGATIVE, Urine Nitrite NEGATIVE, Urine Bilirubin NEGATIVE, Urine Urobilinogen NORMAL, Urine Leukocyte Esterase NEGATIVE, Urine RBC (Auto) NEGATIVE, Urine RBC NONE, Urine WBC RARE, Urine Squamous Epithelial Cells RARE, Urine Crystals NONE, Urine Bacteria MODERATEH, Urine Casts NONE, Urine Mucus NEGATIVE, Urine Culture Indicated YES Assessment/Plan Assessment/Plan Admission Diagonsis fall rib fractures right side nondisplaced 8, 9, 11, 12 constipation Pneumobilia-chronic Admission Status: Inpatient Order (span 2 midnights) Reason for Inpatient Admission: patient with multiple right rib fractures will need aggressive pain control and aggressive pulmonary management so she doesn't worsen which will take at least 2 days Assessment/Plan fall rib fractures right side nondisplaced 8, 9, 11, 12 constipation Pneumobilia-chronic patient admitted for pain control. Concerns due to the number of rib fractures that she could develop pulmonary process will put on aggressive pulmonary regimen of incentive spirometer and mat protocol hospitals consult for medical management Considering epidural but patient refuses at this time. Physical therapy consultation BERNIE NAVARRO DO October 12, 2018 12:40
[2018-10-12 13:41] VITALS: BP 123/86
[2018-10-12] MEDS ORDERED: RT-ALBUTEROL SULF 2.5 MG/3 ML PRE-MIX VIAL INH PRN ×2 (14:00→14:15)
[2018-10-12] MEDS: POLYETHYLENE GLYCOL 17 GM (MIRALAX) PACK PO SCH ×2 (15:10→20:33)
[2018-10-12 15:55] VITALS: BP 159/83
[2018-10-12] MEDS: HYDROcodone/APAP 5 MG/325 MG (LORTAB) TAB PO PRN ×2 (17:19→22:50)
[2018-10-12 19:18] VITALS: BP 132/64
[2018-10-12] MEDS ORDERED: CALCIUM CARBONATE 500 MG (TUMS) TAB.CHEW PO PRN (21:15)
[2018-10-13 00:38] VITALS: BP_SYST 156; BP_DIAS 74; BP_DIAS 84
[2018-10-13] MEDS: HYDROcodone/APAP 5 MG/325 MG (LORTAB) TAB PO PRN ×2 (04:07→22:01)
[2018-10-13 05:01] LABS: BASOPHILS % (AUTO) 0 % (0-10); EOSINOPHILS # (AUTO) 0.2 10^3/uL (0.0-0.3); EOSINOPHILS % (AUTO) 4 % (0-10); HEMATOCRIT 34 % (35-52); HEMOGLOBIN 10.8 G/DL (11.5-16.0); LYMPHOCYTES # (AUTO) 1.8 X 10^3 (1.0-4.0); LYMPHOCYTES % (AUTO) 40 % (12-44); MEAN CORPUSCULAR HEMOGLOBIN 27 PG (25-34); MEAN CORPUSCULAR HGB CONC 32 G/DL (32-36); MEAN CORPUSCULAR VOLUME 85 FL (80-99); MEAN PLATELET VOLUME 11.1 FL (7.4-10.4); MONOCYTES # (AUTO) 0.4 X 10^3 (0.0-1.0); MONOCYTES % (AUTO) 9 % (0-12); NEUTROPHILS # (AUTO) 2.1 X 10^3 (1.8-7.8); NEUTROPHILS % (AUTO) 47 % (42-75); PLATELET COUNT 198 10^3/uL (130-400); RED CELL DISTRIBUTION WIDTH 15.6 % (10.0-14.5); WHITE BLOOD COUNT 4.5 10^3/uL (4.3-11.0)
[2018-10-13 05:28] LABS: ALBUMIN 3.9 GM/DL (3.2-4.5); BILIRUBIN,TOTAL 0.3 MG/DL (0.1-1.0); CALCIUM 9.4 MG/DL (8.5-10.1); CREATININE SERUM 0.94 MG/DL (0.60-1.30); POTASSIUM 4.3 MMOL/L (3.6-5.0); TOTAL PROTEIN 7.3 GM/DL (6.4-8.2)
[2018-10-13 07:59] VITALS: BP 177/91
--- NOTE | 2018-10-13 08:38 | Pulmonary Consultation ---
History of Present Illness History of Present Illness Date of Consultation 10/13/18 08:36 Date of Admission Allergies and Home Medications Allergies Coded Allergies: Penicillins (Verified Allergy, Severe, TACHYCARDIA, COULDN'T BREATHE, 05/20/16) Sulfa (Sulfonamide Antibiotics) (Verified Allergy, Severe, TACHYCARDIA, COULDN'T BREATHE, 05/20/16) Uncoded Allergies: [id number] (SULFA (SULFONAMIDE ANTIBIOTICS)) (Allergy, Mild, RASH, 05/20/16) heart palpatations Home Medications Amlodipine Besylate 5 Mg Tablet, 5 MG PO DAILY, (Reported) Beta-Carotene(A) W-C & E/Min 1 Each Tablet, 1 TAB PO DAILY, (Reported) Calcium Carbonate/Vitamin D3 1 Each Tablet, 1 TAB PO DAILY, (Reported) Cefdinir 300 Mg Capsule, 300 MG PO BID Prescribed by: BASHIR STACK on 05/24/16 0651 Cholecalciferol (Vitamin D3) 400 Unit Capsule, 400 UNIT PO DAILY, (Reported) Cyanocobalamin (Vitamin B-12) 500 Mcg Tablet, 500 MCG PO DAILY, (Reported) Cyclobenzaprine HCl 5 Mg Tablet, 5 MG PO TID, (Reported) Gabapentin 100 Mg Capsule, 100 MG PO Q8H, (Reported) Guaifenesin/Dextromethorphan 5 Ml Syrup, 5 ML PO Q4H PRN for COUGH Prescribed by: BASHIR STACK on 05/24/16650 Hydrocodone Bit/Acetaminophen 1 Each Tablet, 1 TAB PO DAILY PRN for PAIN, (Reported) Levothyroxine Sodium 88 Mcg Tablet, 88 MCG PO DAILY, (Reported) Lutein 20 Mg Tablet, 20 MG PO DAILY, (Reported) Multivitamin with Minerals 1 Each Tablet, 1 TAB PO DAILY, (Reported) Omeprazole 20 Mg Capsule.dr, 20 MG PO DAILY, (Reported) Tramadol HCl 50 Mg Tablet, 50-100 MG PO Q6H PRN for PAIN, (Reported) Past Dxkzmxc-Tbexaf-Vdfnnl Hx Past Med/Social Hx: Reviewed Nursing Past Med/Soc Hx Patient Social History Alcohol Use: Denies Use Recreational Drug Use: No Smoking Status: Never a Smoker 2nd Hand Smoke Exposure: No Recent Foreign Travel: No Contact w/Someone Who Travel: No Recent Infectious Disease Expo: No Recent Hopitalizations: No Physical Abuse: No Sexual Abuse: No Immunizations Up To Date Tetanus Booster (TDap): Unknown Date of Pneumonia Vaccine: Jan 13, 2014 Date of Influenza Vaccine: Feb 18, 2016 Seasonal Allergies Seasonal Allergies: No Past Medical History Surgeries: Yes (TONSILLECTOMY,GASTRIC BYPASS,BILE DUCT BYPASS,BILAT KNEE REPLACEMENT) Abdominal, Joint Replacement, Orthopedic, Tonsillectomy Respiratory: No Currently Using CPAP: No Currently Using BIPAP: No Cardiac: Yes Hypertension Neurological: Yes Reproductive Disorders: Yes Sexually Transmitted Disease: No Bladder Infection Gastrointestinal: Yes (RECURRENT ABD PAINX20 YEARS) Musculoskeletal: Yes (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 No Pertinent Family Hx Sepsis Event Evaluation Height, Weight, BMI Height: 5'5.00" Weight: 134lbs. 0.0oz. 60.911590lw; 22.3 BMI Method:Stated Exam Exam Vital Signs Date Time Temp Pulse Resp B/P (MAP) Pulse Ox O2 Delivery O2 Flow Rate FiO2 10/13/18 07:59 97.6 70 20 177/91 (119) 98 Room Air 10/13/18 00:38 97.4 64 17 156/74 (101) 99 Room Air 10/13/18 00:38 97.4 64 17 156/84 (108) 99 Room Air 10/12/18 20:00 99 Room Air 10/12/18 19:18 97.8 69 18 132/64 (86) 99 Room Air 10/12/18 19:18 97.8 69 18 132/64 (86) 99 Room Air 10/12/18 15:55 97.8 78 18 159/83 (108) 100 Room Air 10/12/18 15:55 97.8 78 18 159/83 (108) 100 Room Air 10/12/18 14:02 Room Air 10/12/18 13:41 78 97 21 10/12/18 12:00 97.4 76 22 174/74 100 Room Air 10/12/18 11:45 97.4 76 174/74 100 Room Air 10/12/18 11:30 96.9 78 12 123/86 (98) 97 Room Air I & O 10/13/18 07:00 Intake Total 1600 ml Balance 1600 ml Height & Weight Height: 5'5.00" Weight: 134lbs. 0.0oz. 60.044867fv; 22.3 BMI Method:Stated General Appearance: No Apparent Distress HEENT: PERRL/EOMI, Normal ENT Inspection, Pharynx Normal Neck: Normal Inspection, Non Tender Respiratory: No Chest Non Tender; No Respiratory Distress, Other (tenderness along the right lower chest wall around to right CVA tenderness) Cardiovascular: Regular Rate, Rhythm, Normal Peripheral Pulses Capillary Refill: Less Than 3 Seconds Gastrointestinal: non tender, soft Extremity: Normal Inspection, Non Tender, No Calf Tenderness Neurologic/Psychiatric: Alert, Oriented x3, No Motor/Sensory Deficits, Normal Mood/Affect, 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
[2018-10-13] MEDS: POLYETHYLENE GLYCOL 17 GM (MIRALAX) PACK PO SCH ×2 (08:40→22:00)
--- NOTE | 2018-10-13 09:29 | NUR ---
PRIOR TO A.M. MEDICATIONS PULSE WAS 70 AND B/P WAS 177/91.
[2018-10-13] MEDS ORDERED: MENT71OI TP (10:18)
--- NOTE | 2018-10-13 10:47 | Physical Therapy Evaluation ---
PT Evaluation-General Medical Diagnosis Admission Date October 12, 2018 at 10:46 Medical Diagnosis: Falls; multiple rib fx Onset Date: October 12, 2018 Therapy Diagnosis Therapy Diagnosis: gait;balance Height/Weight Height (Feet): 5 Height (Inches): 5.00 Weight (Pounds): 134 Weight (Ounces): 0.0 Precautions Precautions/Isolations: Fall Prevention, Standard Precautions Weight Bear Status Full Weight Bearing Full Weight Bearing Referral Physician: Bud Navarro Reason for Referral: Evaluation/Treatment Medical History Additional Medical History Pt has had both knee replaced; history of vertigo, gastric bypass, HTN Reviewed History: Yes Social History Home: Single Level Current Living Status: Alone Entry Into Home: Stairs With Railing PT Steps Into Home: 3 Prior/Core FIM Prior Level of Function Therapy Code Descriptions/Definitions Functional [place] Measure: 0=Not Assessed/NA 4=Minimal Assistance 1=Total Assistance 5=Supervision or Setup 2=Maximal Assistance 6=Modified [place] 3=Moderate Assistance 7=Complete [place] Therapy Quality Codes: 6 Independent with activity with or without an assistive device 5 Patient requires set up or clean up by helper. Patient completes activity by themselves 4 Supervision or touching assist (CGA). [place] provide cues , steadying assist 3 The helper provides less than half the effort to complete the activity 2 The helper provides more than half the effort to complete the activity 1 Dependent. The helper does all the effort to complete an activity 7 Patient refused to complete or attempt activity 9 The patient did not perform the activity before the current illness or injury 88 Not attempted due to Medical conditions or safety concerns Functional Abilities and Goals: Independent: Patient completed the activities by him/herself, with or without an assistive device, with no assistance from a helper. Needed Some Help: Patient needed partial assistance from another person to complete activities. Dependent: A helper completed the activities for the patient. Unknown: Not Applicable: Bed Mobility: 7 Transfers (B,C,W/C) (FIM): 7 Gait: 7 Stairs: 7 PT Evaluation-Current Subjective Pt reports that on 10/12 she got up in the night to use the restroom. She sat edge of bed until her dizziness subsided. She stood up and started to walk but had another dizzy spell that resulted in a fall. Pt could not get up from the floor secondary to pain. Was able to call for assistance. She was brought to the hospital where she was found to have right side non-displaced rib fractures at 8,9,10, 11, 12. Pt admitted to monitor and work on respiratory function in hopes of preventing pneumonia. Pt/Family Goals Return home. Objective Patient Orientation: Normal For Age Problem Solving: Good ROM/Strength ROM Upper Extremities WFL ROM Lower Extremities WFL Strength Upper Extremities gross 4+/5 Strength Lower Extremities gross 4+/5 Sensory Vision: Functional Hearing: Functional Sensation Right Upper Extremit: Intact Sensation Left Upper Extremity: Intact Transfers Therapy Code Descriptions/Definitions Functional [place] Measure: 0=Not Assessed/NA 4=Minimal Assistance 1=Total Assistance 5=Supervision or Setup 2=Maximal Assistance 6=Modified [place] 3=Moderate Assistance 7=Complete [place] Transfers (B, C, W/C) (FIM): 7 Scootin Rollin Supine to/from Sit: 7 Sit to/from Stand: 7 bed t/f WC(FIM only if WC use): 7 Pt is up ad ananth in room for transfers and moving to the bathroom. Gait Mode of Locomotion: Walk Anticipated Mode of Locomotion: Walk Distance (FIM): 3=150 ft Distance: 300 Gait Level of Assist: 5 Gait Persons Needed: 1 Gait Assistive Device: None Comments/Gait Description pt demonstrates safe ambulation without use of assistive device. No balance loss or vertigo during therapay evaluation. Balance Sitting Static: Normal Sitting Dynamic: Normal Standing Static: Fair Standing Dynamic: Fair Assessment/Needs Pt has sufficient mobility to move about her room and to function in her home. She demonstrates sufficient motivation and initiation of movement to allow normal upright respiratory function. Rehab Potential: Good PT [facility] Goals [facility] Goals PT Special Education Paraprofessional Goals Time Frame: October 13, 2018 Transfers (B,C,W/C) (FIM): 7 Gait (FIM): 7 Gait distance (FIM): 3=150 ft Distance: 150 Gait Level of Assist: 7 Gait Assistive Device: None PT Plan Problem List Problem List: Safety Treatment/Plan Treatment Plan: Discontinue PT Treatment Plan: Education Treatment Duration: October 13, 2018 Frequency: 1 time per week Estimated Hrs Per Day: .25 hour per day Patient and/or Family Agrees t: Yes Pt received one session of therapy to assess balance and mobility. She was instructed to keep ahold of furniture or the bed upon initial standing in order to eliminate risk of fall from vertigo. Discharge Recommendations Therapy D/C Recommendations: Home Independently Barriers to Progress none Target Placement home Time/GCodes Time In: 921 Time Out: 1000 Total Billed Treatment Time: 35 Total Billed Treatment visit, katherin moderate complexity 30 min VIKAS GARCIA PT October 13, 2018 10:47
--- NOTE | 2018-10-13 13:09 | Progress Note ---
Subjective Date Seen by a Provider: October 13, 2018 Time Seen by a Provider: 13:06 Subjective/Events-last exam Patient pain controlled. Using IS. Working with PT. No new complaints. Denies n/v fever sweats chills shortness of breath. +BM today Objective Exam Vital Signs Date Time Temp Pulse Resp B/P (MAP) Pulse Ox O2 Delivery O2 Flow Rate FiO2 10/13/18 08:00 98 Room Air 10/13/18 07:59 97.6 70 20 177/91 (119) 98 Room Air 10/13/18 00:38 97.4 64 17 156/74 (101) 99 Room Air 10/13/18 00:38 97.4 64 17 156/84 (108) 99 Room Air 10/12/18 20:00 99 Room Air 10/12/18 19:18 97.8 69 18 132/64 (86) 99 Room Air 10/12/18 19:18 97.8 69 18 132/64 (86) 99 Room Air 10/12/18 15:55 97.8 78 18 159/83 (108) 100 Room Air 10/12/18 15:55 97.8 78 18 159/83 (108) 100 Room Air 10/12/18 14:02 Room Air 10/12/18 13:41 78 97 21 I & O 10/13/18 07:00 Intake Total 1600 ml Balance 1600 ml Capillary Refill : Less Than 3 SecondsLess Than 3 Seconds General Appearance: No Apparent Distress HEENT: PERRL/EOMI, Normal ENT Inspection, Pharynx Normal Neck: Normal Inspection, Non Tender Respiratory: No Chest Non Tender; No Respiratory Distress, Other (tenderness along the right lower chest wall around to right CVA tenderness) Cardiovascular: Regular Rate, Rhythm, Normal Peripheral Pulses Gastrointestinal: non tender, soft Extremity: Normal Inspection, Non Tender, No Calf Tenderness Neurologic/Psychiatric: Alert, Oriented x3, No Motor/Sensory Deficits, Normal Mood/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, 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 Norm as Tested Skin: Normal Color, Warm/Dry Lymphatic: No Adenopathy Results Lab Laboratory Tests 10/13/18 04:37: White Blood Count 4.5, Red Blood Count 3.97L, Hemoglobin 10.8L, Hematocrit 34L, Mean Corpuscular Volume 85, Mean Corpuscular Hemoglobin 27, Mean Corpuscular Hemoglobin Concent 32, Red Cell Distribution Width 15.6H, Platelet Count 198, Mean Platelet Volume 11.1H, Neutrophils (%) (Auto) 47, Lymphocytes (%) (Auto) 40, Monocytes (%) (Auto) 9, Eosinophils (%) (Auto) 4, Basophils (%) (Auto) 0, Ne utrophils # (Auto) 2.1, Lymphocytes # (Auto) 1.8, Monocytes # (Auto) 0.4, Eosinophils # (Auto) 0.2, Basophils # (Auto) 0.0, Sodium Level 139, Potassium Level 4.3, Chloride Level 100, Carbon Dioxide Level 30, Anion Gap 9, Blood Urea Nitrogen 24H, Creatinine 0.94, Estimat Glomerular Filtration Rate 56, BUN/Creatinine Ratio 26, Glucose Level 84, Calcium Level 9.4, Corrected Calcium 9.5, Total Bilirubin 0.3, Aspartate Amino Transf (AST/SGOT) 24, Alanine Aminotransferase (ALT/SGPT) 15, Alkaline Phosphatase 64, Total Protein 7.3, Albumin 3.9 Assessment/Plan Assessment/Plan Assessment/Plan fall rib fractures right side nondisplaced 8, 9, 11, 12 constipation Pneumobilia-chronic Continue pain control continue IS /MAT protocol Working with PT Likely home soon. Clinical Quality Measures DVT/VTE Risk/Contraindication: Risk Factor Score Per Nursin RFS Level Per Nursing on Admit: 4+=Very High Other: see interventions for details BERNIE AGGARWAL DO October 13, 2018 13:09
--- NOTE | 2018-10-13 13:52 | Consultation-Hospitalist ---
HPI History of Present Illness: HPI/Chief Complaint The patient is a delightful 88-year-old white female who apparently developed abrupt onset of her usual vertigo type symptoms while walking causing her to fall. She struck the right side of her chest on arm chair and noted immediate pain. Because of this she was brought to the emergency room where she was noted to have multiple right-sided nondisplaced rib fractures and as I recall a small right pleural effusion likely blood no other significant trauma was noted. Due to significant pain significant fall risk and she was admitted. She's had intermittent vertigo that she'll occasionally take meclizine for in the past it is been several months since her last episode. She denied loss of consciousness only usual visual distortion with movement distortion compatible with what she's been told was vertigo in the past. She denied any neurologic associated symptoms. Date Seen 10/13/18 Attending Physician Bud Navarro DO PCP Dakota Poon DO Referring Physician Date of Admission October 12, 2018 at 10:46 Home Medications & Allergies Home Medications Reviewed patient Home Medication Reconciliation performed by pharmacy medication reconciliations senior controls technician and/or nursing. Patients Allergies have been reviewed. Allergies Allergies Coded Allergies Penicillins (Verified Allergy, Severe, TACHYCARDIA, COULDN'T BREATHE, 05/20/16) Sulfa (Sulfonamide Antibiotics) (Verified Allergy, Severe, TACHYCARDIA, COULDN'T BREATHE, 05/20/16) Uncoded Allergies [id number] (SULFA (SULFONAMIDE ANTIBIOTICS)) ( Allergy, Mild, RASH, 05/20/16) heart palpatations Past Twgbtxd-Hfzobi-Eyfdlu Hx Past Med/Social Hx: Reviewed Nursing Past Med/Soc Hx, Reviewed and Corrections made Patient Social History Alcohol Use: Denies Use Recreational Drug Use: No Smoking Status: Never a Smoker 2nd Hand Smoke Exposure: No Recent Foreign Travel: No Contact w/other who traveled: No Recent Hopitalizations: No Recent Infectious Disease Expo: No Immunizations Up To Date Tetanus Booster (TDap): Unknown Date of Pneumonia Vaccine: Jan 13, 2014 Date of Influenza Vaccine: Feb 18, 2016 Seasonal Allergies Seasonal Allergies: No Past Medical History Surgeries: Abdominal, Joint Replacement, Orthopedic, Tonsillectomy Currently Using CPAP: No Currently Using BIPAP: No Cardiac: Hypertension Reproductive: Yes Sexually Transmitted Disease: No Genitourinary: Bladder Infection Musculoskeletal: Arthritis Endocrine: Hypothyroidsim History of Blood Disorders: No Adverse Reaction to Blood [place]: No Family History Reviewed Nursing Family Hx Patient reports no known family medical history. No Pertinent Family Hx Review of Systems Constitutional: No no symptoms reported; see HPI; No chills, No diaphoresis; dizziness; No fever, No malaise, No weakness, No weight gain, No weight loss EENTM: other (No changes in hearing noted no visual loss.) Respiratory: No cough, No dyspnea on exertion, No hemoptysis, No orthopnea, No phlegm, No short of breath, No stridor, No wheezing, No other Cardiovascular: chest pain; No edema, No Hx of Intervention, No palpitations, No syncope, No vascular heart diseas, No other Physical Exam Physical Exam Vital Signs Vital Signs - First Documented 10/12/18 10/12/18 07:40 13:41 Temp 96.9 Pulse 78 Resp 12 B/P (MAP) 123/86 (98) Pulse Ox 97 O2 Delivery Room Air FiO2 21 Capillary Refill : Less Than 3 SecondsLess Than 3 Seconds Height, Weight, BMI Height: 5'5.00" Weight: 134lbs. 0.0oz. 60.821203py; 22.3 BMI Method:Stated General Appearance: No Apparent Distress HEENT: PERRL/EOMI, Normal ENT Inspection, Pharynx Normal Neck: Normal Inspection, Non Tender Respiratory: No Chest Non Tender; Lungs Clear, No Accessory Muscle Use, No Respiratory Distress, Other (tenderness along the right lower chest wall around to right CVA tenderness splinting with deep inspiration secondary to pain.) Cardiovascular: Regular Rate, Rhythm, No Edema, No Gallop, No JVD, No Murmur, Normal Peripheral Pulses Gastrointestinal: Normal Bowel Sounds, Non Tender, Soft Rectal: Deferred Back: Normal Inspection, CVA Tenderness (R) Extremity: Normal Inspection, Non Tender, No Calf Tenderness Neurologic/Psychiatric: Alert, Oriented x3, No Motor/Sensory Deficits, Normal M ood/Affect, 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 Assessment/Plan Assessment and Plan Assess & Plan/Chief Complaint A/P 1. Elderly white female lives independently at home I believe she does have a son who is their university partnership rep with multiple nondisplaced right sided rib fractures and chest pain. She appears to be doing relatively well on tramadol. With a flare of likely benign positional vertigo she is at significant fall risk will have staff see has she does with ambulation today with likely discharge t omorrow. 2. Hypertension well controlled. 3. Unpredictable likely benign positional vertigo discussed when necessary meclizine. Clinical Quality Measures DVT/VTE Risk/Contraindication: Risk Factor Score Per Nursin RFS Level Per Nursing on Admit: 4+=Very High Other: see interventions for details IVAN SALDANA MD October 13, 2018 13:52
[2018-10-13] MEDS ORDERED: LEVOTHYROXINE 88 MCG (LEVOTHORID) TAB PO NR (14:00)
[2018-10-13] MEDS ORDERED: amLODIPine 5 MG (NORVASC) TAB PO NR (14:00)
[2018-10-13 16:46] VITALS: BP 182/81
[2018-10-13 23:45] VITALS: BP 143/69
[2018-10-14 07:49] VITALS: BP 175/81
[2018-10-14] MEDS: POLYETHYLENE GLYCOL 17 GM (MIRALAX) PACK PO SCH (08:12)
[2018-10-14] MEDS ORDERED: amLODIPine 5 MG (NORVASC) TAB PO SCH (09:00)
[2018-10-14] MEDS ORDERED: MENT71OI TP (09:10)
[2018-10-14] MEDS ORDERED: LUTE6TAB PO (09:10)
[2018-10-14] MEDS ORDERED: CALC-852 PO (09:10)
[2018-10-14] MEDS ORDERED: LEVO88TA54 PO (09:10)
[2018-10-14] MEDS ORDERED: CHOL10007 PO (09:10)
[2018-10-14] MEDS ORDERED: FAMO20TA3 PO (09:22)
--- NOTE | 2018-10-14 09:23 | NUR ---
REVIEWED THE MEDICATION LIST THAT THE PATIENT BROUGHT IN WITH THE LIST OF MEDICATIONS RECENTLY FILLED BY [facility]. [facility] FILLED: 09-17-18 TRAMADOL 50MG 2 Q5 HOURS #180 (TAKES 1 TO 2) 5 AMLODIPINE 5MG DAILY #90 5 CYCLOBENZAPRINE 5MG TID #90 5 PEPCID 20MG DAILY #90 (LIST STATED OMEPRAZOLE BUT SHE VERIFIED FAMOTIDINE) 08-28-18 GABAPENTIN 100MG HS #90 06-13-18 LEVOTHYROXINE 88MCG DAILY #90 LESLIE. HYDROCODONE 5-325MG Q12 HOURS (STATES SHE TAKES Q6H PRN FOR SIDE PAIN) SHE REPORTS SHE ALSO USES: MECLIZINE 25MG Q6-8H PRN CALMOSEPTINE OINTMENT BID VISION FORMULA DAILY LUTEIN 6MG DAILY D3 1000IU DAILY CALCIUM CITRATE 600MG BID
--- NOTE | 2018-10-14 11:49 | Progress Note-Hospitalist ---
Progress Note Progress Notes/Assess & Plan Date Seen 10/14/18 Time Seen by Provider: 11:45 Assessment & Plan The patient is an 88-year-old white female who fell at her home. She states that she was using her walker but had an episode of vertigo and tipped it over. She suffered multiple right rib fractures. She seems to be doing rather well but has concerns about returning home as she lives alone. She also states that she has a front wheeled walker that she has to last picker to move forward. I am not clear whether this is a problem with her technique or related to what she describes as uneven floors in her home. Physical therapy will be asked to evaluate the circumstances and make recommendations as to her technique, height adjustment of her walker, or being better served by a different type of walker. Physical exam: She is quite pleasant and talkative. Lungs are clear to auscultation. CV is regular. Impression: Multiple rib fractures. 2.history of vertigo and gait instability. Plan: Discharge to home. See discharge sequence for medications and routines SANTO VALADEZ MD October 14, 2018 11:49
--- NOTE | 2018-10-14 12:07 | Discharge Inst-Simple/Standard ---
Discharge Inst-Standard Patient Instructions/Follow Up Plan of Care/Instructions/FU: Medications as listed on the discharge sequence. Use your walker. Physical therapy has recommended that you acquire a 4 wheel walker and this has been ordered for you Make an appointment to see your regular physician for about one week. Use your incentive spirometry at least 4 times a day. Activity as Tolerated: Yes Goal: Return to usual function. Discharge Diet: No Restrictions Return to The Hospital For: Decline in performance SANTO VALADEZ MD October 14, 2018 12:07
--- NOTE | 2018-10-14 13:10 | Pulmonary Progress Note ---
Subjective Time Seen by a Provider: 09:00 Subjective/Events-last exam PT is doing well. Plan is for discharge today. Sepsis Event Evaluation Height, Weight, BMI Height: 5'5.00" Weight: 134lbs. 0.0oz. 60.475806ky; 22.3 BMI Method:Stated Exam Exam Vital Signs Date Time Temp Pulse Resp B/P (MAP) Pulse Ox O2 Delivery O2 Flow Rate FiO2 10/14/18 08:00 97 Room Air 10/14/18 07:49 97.8 86 20 175/81 (112) 97 Room Air 10/13/18 23:45 98.2 66 16 143/69 (93) 97 Room Air 10/13/18 20:00 99 Room Air 10/13/18 16:46 97.9 90 18 182/81 (114) 99 Room Air I & O 10/14/18 07:00 Intake Total 1775 ml Balance 1775 ml Height & Weight Height: 5'5.00" Weight: 134lbs. 0.0oz. 60.290216pe; 22.3 BMI Method:Stated General Appearance: No Apparent Distress HEENT: PERRL/EOMI, Normal ENT Inspection, Pharynx Normal Neck: Normal Inspection, Non Tender Respiratory: No Chest Non Tender; Lungs Clear, No Accessory Muscle Use, No Respiratory Distress, Other (tenderness along the right lower chest wall around to right CVA tenderness splinting with deep inspiration secondary to pain.) Cardiovascular: Regular Rate, Rhythm, No Edema, No Gallop, No JVD, No Murmur, Normal Peripheral Pulses Capillary Refill: Less Than 3 Seconds Gastrointestinal: non tender, soft Extremity: Normal Inspection, Non Tender, No Calf Tenderness Neurologic/Psychiatric: Alert, Oriented x3, No Motor/Sensory Deficits, Normal Mood/Affect, 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 She is ok for discharge from pulmonary standpoint. AMILCAR KAUR DO October 14, 2018 13:10
--- NOTE | 2018-10-14 13:33 | Physical Therapy Progress Note ---
Therapy Progress Note Adjusted patient's rolling walker to the right height for her. Family was wondering about putting tennis balls on it but it already has hard plastic caps on the back. It could use bigger wheels on the front so she can hopefully go over transitions from tile to carpet without having to lift the walker. Family was wondering if we recommended a 4 wheeled walker. Patient has dizzy spells and she says she can usually feels them coming on. A 4 wheeled walker would allow her a mobile seat that she could rest in when she gets dizzy instead of having to ambulate to another location. JENNIFER FAYE PT October 14, 2018 13:33
[2018-10-14 13:40] VITALS: BP 175/81
--- NOTE | 2018-10-14 13:41 | NUR ---
CM/SS patient is discharging this day and has new order for a 4 wheeled walker. Patient's daughter brought in her FWW and asked that PT adjust it to fit her properly. Patient and her daughter wanted to just grain picker the new walker if she felt she needed it later today or tomorrow and did not want to wait to have it delivered. Patient's daughter was in a hurry as she had left over food in the car.
--- NOTE | 2018-10-16 11:11 | Physician Query-Final Dx ---
ELVIA OSORIO 10/16/18 1111: Final Diagnosis Give Final Diagnosis Please give Final Diagnosis LESLIE GROSSMAN 10/27/18 1230: ELVIA OSORIO October 16, 2018 11:11 LESLIE GROSSMAN Oct 27, 2018 12:30
--- NOTE | 2018-10-20 11:53 | Physician Query Clarification ---
PQ-Intro New Diagnosis Admission/Discharge Admission Date: October 12, 2018 at 10:46 Discharge Date: October 14, 2018 at 13:40 The medical record reflects the following clinical scenario: History/Risk Factors: HTN, hypothyroidism, pneumobilia, vertigo Clinical Findings: UA - urine bacteria moderate, urine culture >100,000 e. coli Treatment: patient admitted with Cefdinir Question: What condition best reflects the above clinical scenario? Please document a response in the Progress Noter or Discharge Summary. 1. Chronic cystitis 2. Acute cystitis 3. No cystitis/UTI 4. Other, with explanation of the clinical findings. 5. Clinically undetermined, no explanation for the clinical findings. PHYSICIAN RESPONSE What condition reflects above: Other, explanation/clinical finding Explanation of clincal finding no UTI Dx is asymptomatic bacteriuria Please remember a lack of response to the above will prompt a phone page by CDI/Coding staff. In responding to this query, please exercise your independent professional judgment. The purpose of this communication is to more accurately reflect the complexity of your patients condition. The fact that a question is asked does not imply that any particular answer is desired or expected. Thank you for your timely response to this clarification. Requestors name: Saurabh THIS PHYSICIAN QUERY FORM IS A PERMANENT PART OF THE MEDICAL RECORD SAURABH MICHAEL Oct 20, 2018 11:53 IVAN SALDANA MD Oct 24, 2018 10:23
--- NOTE | 2018-10-20 11:58 | Physician Query Clarification ---
PQ-Further Specificity Admission/Discharge Admission Date: October 12, 2018 at 10:46 Discharge Date: October 14, 2018 at 13:40 The medical record reflects the following clinical scenario: History/Risk Factors: vertigo Clinical Findings: benign positional vertigo Treatment: Meclizine PRN Question: Can you further specify the ear affected by the BPV per the clinical indicators above? Please document a response in the Progress Notes or Discharge Summary. 1. right ear 2. left ear 3. bilateral ears 4. Other, with explanation of the clinical findings. 5. Clinically undetermined, no explanation for the clinical findings. PHYSICIAN RESPONSE Can you specify per above: Clinically undetermined Please remember a lack of response to the above will prompt a phone page by CDI/Coding staff. In responding to this query, please exercise your independent professional judgment. The purpose of this communication is to more accurately reflect the complexity of your patients condition. The fact that a question is asked does not imply that any particular answer is desired or expected. Thank you for your timely response to this clarification. Requestors name: Saurabh THIS PHYSICIAN QUERY FORM IS A PERMANENT PART OF THE MEDICAL RECORD SAURABH MICHAEL Oct 20, 2018 11:58 IVAN SALDANA MD Oct 21, 2018 20:41
== END 2018-10-14 13:40 | disposition home or self-care (01) | DRG 185 ==
LOC: EDUNIT# 07:39 → ER 07:41 → 4TH 10:46
PROVIDERS: ADMIT Surgery; ATTEND Surgery
DX: S22.41XA Multiple fractures of ribs, right side, initial encounter for closed fracture (principal); H81.10 Benign paroxysmal vertigo, unspecified ear; R32 Unspecified urinary incontinence; R82.71 Bacteriuria; I10 Essential (primary) hypertension; E03.9 Hypothyroidism, unspecified; K59.00 Constipation, unspecified; K83.8 Other specified diseases of biliary tract; W19.XXXA Unspecified fall, initial encounter; Y92.009 Unspecified place in unspecified non-institutional (private) residence as the place of occurrence of the external cause
CPT/HCPCS: 36415; 71260; 74177; 80053; 81000; 85025; 87077; 87088; 87186; 94664; 96360

== ENCOUNTER → 2019-07-13 | Outpatient (CLI) | payer MEDICARE, OTHER ==
[~2019-07-13] MED LIST changes: +CALC-852 PO; +CHOL10007 PO; -CYAN500T2 PO; +CYAN500T62 PO; +FAMO20TA3 PO; +GABA-486 PO; +LEVO88TA54 PO; +LUTE6TAB PO; +MECL-149 PO; +MENT71OI TP; -OMEP20CA12 PO; +OMEP20CA18 PO; -TRAM50TA2 PO; +TRM50T PO
--- NOTE | 2019-07-14 12:10 | Diagnostic Imaging Report ---
INDICATION: Routine screening. COMPARISON: Comparison is made with prior mammograms from 07/10/2018 and 07/08/2017. TECHNIQUE: 2-D and 3-D bilateral screening mammography was performed. The current study was also evaluated with a Computer Aided Detection (CAD) system. 3-D tomosynthesis was also performed and reviewed. FINDINGS: Both breasts remain heterogeneously dense, limiting the sensitivity of mammography. Vascular calcifications are again noted bilaterally. There is a density in the left breast just medial to the nipple line on the CC view at mid depth. No definite correlate on the MLO view is seen. Additional views are recommended including spot compression and rolled CC views. No other masses are seen. Axillae are unremarkable. IMPRESSION: Left breast density. Additional views are recommended for further evaluation. ACR BI-RADS Category 0: Incomplete. (Needs additional imaging evaluation). Result letter will be mailed to the patient. Note: At least 10% of breast cancer is not imaged by mammography. Dictated by: Dictated on workstation # [id number]
== END ==
LOC: RAD 14:46
PROVIDERS: ATTEND Internal Medicine
DX: Z12.31 Encounter for screening mammogram for malignant neoplasm of breast (principal)
CPT/HCPCS: 77067

== ENCOUNTER → 2019-08-05 | Outpatient (CLI) | payer MEDICARE, OTHER ==
--- NOTE | 2019-08-05 13:24 | Diagnostic Imaging Report ---
INDICATION: Left breast density. Patient presents for additional views. Correlation made with recent screening study from 07/13/2019 as well as prior mammograms dating back to 2017. Unilateral left 2-D and 3-D diagnostic mammography was performed including rolled CC, spot compression CC, and conventional 90 degree lateral views. The area of density in the medial left breast appears to resolve with additional views. This most likely represents superimposed tissue. There are benign parenchymal and vascular calcifications in the left breast. Benign nodule in the superior left breast stable. IMPRESSION: BI-RADS Category 2 Additional views fail to demonstrate a discrete mass. The patient may return to routine annual screening mammography. ACR BI-RADS Category 2: Benign findings. Result letter will be mailed to the patient. Note: At least 10% of breast cancer is not imaged by mammography. Dictated by: Dictated on workstation # [id number]
== END ==
LOC: RAD 12:58
PROVIDERS: ATTEND Internal Medicine
DX: R92.8 Other abnormal and inconclusive findings on diagnostic imaging of breast (principal)

== ENCOUNTER → 2020-06-23 | Outpatient (CLI) | payer MEDICARE, OTHER ==
[~2020-06-23] MED LIST changes: +AMLO-250 PO; -AMLO5TAB9 PO; -CYAN500T62 PO; +CYAN500T8 PO
--- NOTE | 2020-06-23 13:32 | Diagnostic Imaging Report ---
PROCEDURE: CT head without contrast. TECHNIQUE: Multiple contiguous axial images were obtained through the brain without the use of intravenous contrast. Auto Exposure Controls were utilized during the CT exam to meet ALARA standards for radiation dose reduction. INDICATION: Headache and dizziness. No prior studies are available for comparison. Ventricles and sulci are consistent with the patient's age. There are significant periventricular hypodensity noted consistent with senescent change. No sulcal effacement or midline shift is identified. No acute intra-axial or extra-axial hemorrhage is detected. Cisterns are patent. Visualized paranasal sinuses are clear. IMPRESSION: Senescent changes. No acute intracranial process is detected. Dictated by: Dictated on workstation # [id number]
--- NOTE | 2020-06-23 14:20 | Diagnostic Imaging Report ---
INDICATION: Acute pain. No known trauma or injury. EXAMINATION: Left knee from 06/23/2020. FINDINGS: Three views of the knee. 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 No evidence for loosening or acute fracture appreciated. The soft tissues are unremarkable with no significant effusion. IMPRESSION: 1. Uncomplicated postoperative findings. Dictated by: Dictated on workstation # [id number]
--- NOTE | 2020-06-23 14:40 | Diagnostic Imaging Report ---
INDICATION: Acute back pain. TIME OF EXAM: 01:52 p.m. FINDINGS: There is left convexity lumbar scoliotic curvature. There is normal lordotic curvature. Vertebral body heights are maintained. No acute compression fracture is seen. There is severe multilevel degenerative disc disease with multilevel disc space narrowing and marginal spurring. There are posterior element screws at the L4 and L5 levels. There appear to be laminectomy changes at L4 and L5. IMPRESSION: Left convexity lumbar scoliosis and severe spondylosis with postsurgical change. No acute fracture is detected. Dictated by: Dictated on workstation # [id number]
--- NOTE | 2020-06-23 14:40 | Diagnostic Imaging Report ---
EXAMINATION: Thoracic spine at 1:43 p.m. INDICATION: Acute pain. AP, lateral and swimmer's views were obtained. There is no fracture, dislocation or acute bony abnormality evident. As seen on the previous CT chest exam of 10/12/2018 there is degenerative disc and bony disease throughout the thoracic spine. There is no sign of a paraspinal mass. IMPRESSION: 1. There is no evidence for an acute bony abnormality. 2. If clinical concern regarding an underlying abnormality persists, then MRI would be recommended for further study. Dictated by: Dictated on workstation # [id number]
--- NOTE | 2020-06-23 14:45 | Diagnostic Imaging Report ---
INDICATION: Pain. EXAMINATION: Right clavicle. 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 No fracture or dislocation. Soft tissue ossification and swelling superior to the AC joint is present. No AC joint separation. The coracoclavicular interval appears normal. IMPRESSION: Hypertrophic degenerative change most severely involves the AC joint without fracture, joint separation or dislocation. Dictated by: Dictated on workstation # [id number]
== END ==
LOC: RAD 13:45
PROVIDERS: ATTEND Internal Medicine
DX: G31.9 Degenerative disease of nervous system, unspecified (principal); M47.816 Spondylosis without myelopathy or radiculopathy, lumbar region; M19.011 Primary osteoarthritis, right shoulder; M41.86 Other forms of scoliosis, lumbar region; Z96.652 Presence of left artificial knee joint
CPT/HCPCS: 70450; 72072; 72110; 73000; 73562